=== PATIENT | female | born 1955 | race Caucasian/White ===

== ENCOUNTER 2016-07-13 22:42 | Inpatient (IN) | payer BC ==
[2016-07-13] MEDS ORDERED: Albuterol/Ipratropium 3.0-0.5 MG/3 ML Neb Soln NEB ONE (22:49)
[2016-07-13] MEDS ORDERED: methylPREDNISolone Sodium Succinate 125 MG/2 ML SDV IVPUSH ONE (23:09)
[2016-07-13] MEDS ORDERED: Sodium Chloride 0.9% 1,000 ML IV ONE (23:10)
[2016-07-13 23:23] LABS: CHLORIDE,CL 103 mmol/L (101-111); SODIUM,NA 136 mmol/L (135-145)
[2016-07-13] MEDS ORDERED: Potassium Chloride 10 MEQ Tab.ER PO ONE (23:41)
--- NOTE | 2016-07-13 23:57 | EDM.PDOC ---
ED HISTORY OF PRESENT ILLNESS - General Chief Complaint: Respiratory Problem Stated Complaint: COUGH, DIFFICULTY BREATHING Time Seen by Provider: 07/13/16 22:50 Source of Information: Reports: Patient History Limitations: Reports: Respiratory distress - History of Present Illness INITIAL COMMENTS - FREE TEXT/NARRATIVE: c/o severe cough and difficultly breathing. Cough x 2 months was told GERD, Cough worsening over past week SOB with minimal activity. Fever chills past few days. Trying OTC without improvement. Hx reactive airway but never on inhaler or nebulizer. Bronchitis 2 years ago. Lots of sinus drainage. Feels weak Severity: moderate Location, General: Reports: chest Worsens with: Reports: Movement Context, General: Reports: Activity Associated Symptoms (General): Reports: cough, fever/chills, loss of appetite, malaise - Related Data Allergies/ADRs: Allergies Allergy/AdvReac Type Severity Reaction Status Date / Time IVP dye Allergy Cannot Uncoded 07/13/16 22:53 Remember Home Meds: Home Meds Lisinopril [Lisinopril] 20 mg PO DAILY 07/13/16 [History] Amitriptyline [Elavil] 25 mg PO BEDTIME 07/14/16 [History] Past Medical History Respiratory History: Reports: Other (see below) Other Respiratory History: Reactive Airway Disease Social & Family History - Tobacco Use Smoking Status *Q: Never Smoker Second Hand Smoke Exposure: No - Caffeine Use Caffeine Use: Reports: Coffee - Recreational Drug Use Recreational Drug Use: No ED ROS GENERAL - Review of Systems Review Of Systems: See Below Constitutional: Reports: fever, chills, malaise, weakness, decreased appetite HEENT: Reports: Ear pain (feel full), Sinus problem, Throat pain (mild) Respiratory: Reports: shortness of breath, cough, sputum (rare) Cardiovascular: Reports: Dyspnea on exertion. Denies: Edema, Lightheadedness GI/Abdominal: Reports: No symptoms : Reports: no symptoms Musculoskeletal: Reports: no symptoms Skin: Reports: no symptoms Neurological: Reports: no symptoms ED EXAM, GENERAL - Physical Exam Exam: See Below Exam Limited By: No limitations General Appearance: alert, moderate distress (inital 2 word responses, ), thin Eye Exam: bilateral eye: EOMI Ears: normal external exam. No: normal TMs (dull) Nose: normal inspection Throat/Mouth: Other (mucus membranes tacky. vocal hoarseness) Respiratory/Chest: lungs clear, respiratory distress, decreased breath sounds, other (harxh coarse cough) Cardiovascular: normal peripheral pulses, regular rate, rhythm, no edema GI/Abdominal: normal bowel sounds, soft Extremities: normal inspection Neurological: alert, oriented Psychiatric: anxious Skin Exam: Warm, Diaphoretic, Pallor Course - Vital Signs Last Recorded V/S: Last Vital Signs Temp 98.2 F 07/14/16 01:20 Pulse 98 07/14/16 01:20 Resp 20 07/14/16 01:20 BP 151/98 H 07/14/16 01:20 Pulse Ox 95 07/14/16 01:20 - Orders/Labs/Meds Orders: Active Orders 24 hr Category Date Time Status Patient Status [ADT] Routine ADT 07/14/16 01:22 Active EKG 12 Lead [EKG Documentation Completion] [RC] URGENT Care 07/13/16 22:50 Active Flutter Valve Therapy [RT Chest Physiotherapy] [RC] Care 07/14/16 01:32 Active ASDIRECTED IS (RT) [RT Incentive Spirometry] [RC] ASDIRECTED Care 07/14/16 01:32 Active Oxygen Therapy [RC] PRN Care 07/14/16 01:22 Active Pulse Oximetry [RC] PRN Care 07/14/16 01:23 Active RT Aerosol Therapy [RC] ASDIRECTED Care 07/13/16 22:49 Active RT Aerosol Therapy [RC] ASDIRECTED Care 07/14/16 00:40 Active RT Aerosol Therapy [RC] ASDIRECTED Care 07/14/16 01:26 Active Up ad Shweta [RC] ASDIRECTED Care 07/14/16 01:22 Active VTE/DVT Education [RC] PER UNIT ROUTINE Care 07/14/16 01:22 Active Vital Signs [RC] Q4H Care 07/14/16 01:22 Active 2 Gram Sodium Diet [DIET] Diet 07/14/16 Breakfast Active BASIC METABOLIC PANEL,BMP [CHEM] Routine Lab 07/14/16 06:00 Ordered CULTURE BLOOD [BC] Stat Lab 07/13/16 23:59 Results CULTURE SPUTUM + SMEAR [RM] Stat Lab 07/14/16 00:55 Received Acetaminophen [Tylenol] Med 07/14/16 01:22 Ordered 650 mg PO Q4H PRN Albuterol [Proventil Neb Soln] Med 07/14/16 01:22 Ordered 2.5 mg NEB Q2H PRN Albuterol/Ipratropium [DuoNeb 3.0-0.5 MG/3 ML] Med 07/14/16 01:30 Ordered 3 ml NEB Q4H Azithromycin [Zithromax] 500 mg Med 07/14/16 12:00 Ordered Sodium Chloride 0.9% [Normal Saline] 250 ml IV Q24H Codeine/Promethazine [Phenergan with Codeine] Med 07/14/16 01:31 Ordered 5 ml PO Q6HR PRN Enoxaparin [Lovenox] Med 07/14/16 09:00 Ordered 40 mg SUBCUT DAILY Levofloxacin/Dextrose 5%-Water [Levaquin in D5W 500 MG/ Med 07/14/16 00:41 Active 100 ML] 500 mg Premix Bag 1 bag IV ONETIME Lisinopril [Prinivil] Med 07/14/16 02:00 Ordered 10 mg PO DAILY Sodium Chloride 0.9% [Normal Saline] 1,000 ml Med 07/13/16 23:10 Active IV ONETIME Sodium Chloride 0.9% [Saline Flush] Med 07/14/16 01:22 Ordered 10 ml FLUSH ASDIRECTED PRN guaiFENesin [Robitussin] Med 07/14/16 01:45 Ordered 100 mg PO Q6H methylPREDNISolone Sod Succ [Solu-MEDROL] Med 07/14/16 07:00 Ordered 40 mg IVPUSH Q8H Saline Lock Insert [OM.PC] Routine Oth 07/14/16 01:22 Ordered Resuscitation Status Routine Resus Stat 07/14/16 01:22 Ordered Medication Orders Acetaminophen (Tylenol) 650 mg PO Q4H PRN PRN Reason: Pain (Mild 1-3)/fever Albuterol (Proventil Neb Soln) 2.5 mg NEB Q2H PRN PRN Reason: shortness of breath/wheezing Albuterol/Ipratropium (Duoneb 3.0-0.5 Mg/3 Ml) 3 ml NEB Q4H JOSE Enoxaparin Sodium (Lovenox) 40 mg SUBCUT DAILY JOSE Guaifenesin (Robitussin) 100 mg PO Q6H JOSE Sodium Chloride (Normal Saline) 1,000 mls @ 200 mls/hr IV ONETIME ONE Stop: 07/14/16 04:09 Last Admin: 07/13/16 23:23 Dose: 200 mls/hr Levofloxacin/Dextrose 500 mg/ (Premix) 100 mls @ 100 mls/hr IV ONETIME ONE Stop: 07/14/16 01:40 Last Admin: 07/14/16 00:51 Dose: 100 mls/hr Azithromycin 500 mg/ Sodium (Chloride) 250 mls @ 250 mls/hr IV Q24H JOSE Lisinopril (Prinivil) 10 mg PO DAILY JOSE Methylprednisolone Sodium Succinate (Solu-Medrol) 40 mg IVPUSH Q8H JOSE Promethazine HCl/Codeine (Phenergan With Codeine) 5 ml PO Q6HR PRN PRN Reason: Cough Sodium Chloride (Saline Flush) 10 ml FLUSH ASDIRECTED PRN PRN Reason: Keep Vein Open Labs: Laboratory Tests 07/13/16 07/13/16 07/13/16 Range/Units 22:57 22:57 22:57 WBC 9.0 (5.0-10.0) 10^3/uL RBC 4.58 (4.2-5.4) 10^6/uL Hgb 13.6 (12.0-16.0) g/dL Hct 40.4 (37.0-47.0) % MCV 88.2 (80-100) fL MCH 29.7 (27.0-34.0) pg MCHC 33.7 (33.0-35.0) g/dL Plt Count 200 (150-450) 10^3/uL Neut % (Auto) 75.0 (42.2-75.2) % Lymph % (Auto) 14.3 L (20.5-50.1) % [place] % (Auto) 8.4 H (2-8) % Eos % (Auto) 2.2 (1.0-3.0) % Baso % (Auto) 0.1 (0.0-1.0) % D-Dimer, Quantitative (0-400) ng/mL Sodium 136 (135-145) mmol/L Potassium 3.1 L (3.6-5.0) mmol/L Chloride 103 (101-111) mmol/L Carbon Dioxide 25.0 (21.0-31.0) mmol/L Anion Gap 11.1 BUN 12 (7-18) mg/dL Creatinine 0.7 (0.6-1.3) mg/dL Est Cr Clr Drug Dosing TNP Estimated GFR (MDRD) > 60 BUN/Creatinine Ratio 17.14 Glucose 118 H (74-105) mg/dL Lactic Acid 1.5 (0.5-2.2) mmol/L Calcium 8.7 (8.4-10.2) mg/dl Total Bilirubin 0.4 (0.2-1.0) mg/dL AST 29 (10-42) IU/L ALT 13 (10-60) IU/L Alkaline Phosphatase 63 (42-121) IU/L Troponin I (0.00-0.02) ng/ml B-Natriuretic Peptide (0-100) pg/ml Total Protein 7.4 (6.7-8.2) g/dl Albumin 4.2 (3.2-5.5) g/dl Globulin 3.2 Albumin/Globulin Ratio 1.31 07/13/16 07/13/16 Range/Units 22:57 22:57 WBC (5.0-10.0) 10^3/uL RBC (4.2-5.4) 10^6/uL Hgb (12.0-16.0) g/dL Hct (37.0-47.0) % MCV (80-100) fL MCH (27.0-34.0) pg MCHC (33.0-35.0) g/dL Plt Count (150-450) 10^3/uL Neut % (Auto) (42.2-75.2) % Lymph % (Auto) (20.5-50.1) % [place] % (Auto) (2-8) % Eos % (Auto) (1.0-3.0) % Baso % (Auto) (0.0-1.0) % D-Dimer, Quantitative 281 (0-400) ng/mL Sodium (135-145) mmol/L Potassium (3.6-5.0) mmol/L Chloride (101-111) mmol/L Carbon Dioxide (21.0-31.0) mmol/L Anion Gap BUN (7-18) mg/dL Creatinine (0.6-1.3) mg/dL Est Cr Clr Drug Dosing Estimated GFR (MDRD) BUN/Creatinine Ratio Glucose (74-105) mg/dL Lactic Acid (0.5-2.2) mmol/L Calcium (8.4-10.2) mg/dl Total Bilirubin (0.2-1.0) mg/dL AST (10-42) IU/L ALT (10-60) IU/L Alkaline Phosphatase (42-121) IU/L Troponin I < 0.02 (0.00-0.02) ng/ml B-Natriuretic Peptide 32 (0-100) pg/ml Total Protein (6.7-8.2) g/dl Albumin (3.2-5.5) g/dl Globulin Albumin/Globulin Ratio Meds: Medications Generic Name Dose Route Start Last Admin Trade Name Freq PRN Reason Stop Dose Admin Acetaminophen 650 mg 07/14/16 01:22 Tylenol PO Q4H PRN Pain (Mild 1-3)/fever Albuterol 2.5 mg 07/14/16 01:22 Proventil Neb Soln NEB Q2H PRN shortness of breath/wheezing Albuterol/Ipratropium 3 ml 07/14/16 01:30 Duoneb 3.0-0.5 Mg/3 Ml NEB Q4H JOSE Enoxaparin Sodium 40 mg 07/14/16 09:00 Lovenox SUBCUT DAILY PENDING SALE TO [facility] Guaifenesin 100 mg 07/14/16 01:45 Robitussin PO Q6H JOSE Sodium Chloride 1,000 mls @ 200 mls/hr 07/13/16 23:10 07/13/16 23:23 Normal Saline IV 07/14/16 04:09 200 mls/hr ONETIME ONE Administration Levofloxacin/Dextrose 500 mg/ 100 mls @ 100 mls/hr 07/14/16 00:41 07/14/16 00 :51 Premix IV 07/14/16 01:40 100 mls/hr ONETIME ONE Administration Azithromycin 500 mg/ Sodium 250 mls @ 250 mls/hr 07/14/16 12:00 Chloride IV Q24H JOSE Lisinopril 10 mg 07/14/16 02:00 Prinivil PO DAILY JOSE Methylprednisolone Sodium Succinate 40 mg 07/14/16 07:00 Solu-Medrol IVPUSH Q8H JOSE Promethazine HCl/Codeine 5 ml 07/14/16 01:31 Phenergan With Codeine PO Q6HR PRN Cough Sodium Chloride 10 ml 07/14/16 01:22 Saline Flush FLUSH ASDIRECTED PRN Keep Vein Open Discontinued Medications Generic Name Dose Route Start Last Admin Trade Name Evelio PRN Reason Stop Dose Admin Albuterol 2.5 mg 07/14/16 00:40 07/14/16 00:52 Proventil Neb Soln NEB 07/14/16 00:41 2.5 mg ONETIME ONE Administration Albuterol/Ipratropium 3 ml 07/13/16 22:49 07/13/16 22:54 Duoneb 3.0-0.5 Mg/3 Ml NEB 07/13/16 22:50 3 ml ONETIME ONE Administration Methylprednisolone Sodium Succinate 125 mg 07/13/16 23:09 07/13/16 23:23 Solu-Medrol IVPUSH 07/13/16 23:10 125 mg ONETIME ONE Administration Potassium Chloride 40 meq 07/13/16 23:41 07/13/16 23:47 Klor-Con 10 PO 07/13/16 23:42 40 meq ONETIME ONE Administration - Re-Assessments/Exams Free Text/Narrative Re-Assessment/Exam: 07/14/16 01:02 Improvement in severity of cough and frequency initially following DUO neb. Talkking full sentences. HR decreased. Resting. Coughing and dyspnea with minimal movement in bed after [address] Radford. Here to ED to eval patient. Departure - Departure Time of Disposition: 01:20 Disposition: Admitted As Inpatient 65 Condition: fair Clinical Impression: Hypokalemia, Bronchitis Dyspnea Qualifiers: Dyspnea type: shortness of breath Qualified Code(s): R06.02 - Shortness of breath Gastroesophageal reflux disease Qualifiers: Esophagitis presence: esophagitis presence not specified Qualified Code(s): K21.9 - Gastro-esophageal reflux disease without esophagitis Hypertension Qualifiers: Hypertension type: essential hypertension Qualified Code(s): I10 - Essential ( primary) hypertension Forms: ED Department Discharge - My Orders Last 24 Hours: My Active Orders 07/13/16 22:49 RT Aerosol Therapy [RC] ASDIRECTED 07/13/16 22:50 EKG 12 Lead [EKG Documentation Completion] [RC] URGENT 07/13/16 23:10 Sodium Chloride 0.9% [Normal Saline] 1,000 ml IV ONETIME 07/13/16 23:59 CULTURE BLOOD [BC] Stat 07/14/16 00:40 RT Aerosol Therapy [RC] ASDIRECTED 07/14/16 00:41 Levofloxacin/Dextrose 5%-Water [Levaquin in D5W 500 MG/100 ML] 500 mg Premix Bag 1 bag IV ONETIME 07/14/16 00:55 CULTURE SPUTUM + SMEAR [RM] Stat - Assessment/Plan Last 24 Hours: My Active Orders 07/13/16 22:49 RT Aerosol Therapy [RC] ASDIRECTED 07/13/16 22:50 EKG 12 Lead [EKG Documentation Completion] [RC] URGENT 07/13/16 23:10 Sodium Chloride 0.9% [Normal Saline] 1,000 ml IV ONETIME 07/13/16 23:59 CULTURE BLOOD [BC] Stat 07/14/16 00:40 RT Aerosol Therapy [RC] ASDIRECTED 07/14/16 00:41 Levofloxacin/Dextrose 5%-Water [Levaquin in D5W 500 MG/100 ML] 500 mg Premix Bag 1 bag IV ONETIME 07/14/16 00:55 CULTURE SPUTUM + SMEAR [RM] Stat
[2016-07-14] MEDS ORDERED: Albuterol 0.083% 2.5 MG/3 ML Neb Soln NEB ONE (00:40)
[2016-07-14] MEDS ORDERED: Levofloxacin/Dextrose 5%-Water 500 MG in Premix Bag 1 BAG IV ONE (00:41)
[2016-07-14] MEDS ORDERED: Albuterol 0.083% 2.5 MG/3 ML Neb Soln NEB PRN (01:22)
[2016-07-14] MEDS ORDERED: Albuterol/Ipratropium 3.0-0.5 MG/3 ML Neb Soln NEB SCH (01:30)
--- NOTE | 2016-07-14 01:40 | PCM.HP ---
H&P History of Present Illness - General Date of Service: 07/14/16 Admit Problem/Dx: Admission Diagnosis/Problem Admission Diagnosis/Problem Reactive airways dysfunction syndrome Source of Information: Patient, Family, Provider History Limitations: Reports: No limitations - History of Present Illness Initial Comments - Free Text/Narative: Surekha is a pleasant 60 y/o with PMH of reactive airway dz, HTN, GERD, who presents to EOD with c/c dyspnea, cough, fever. PT report she has had a cough for past several months. Initally attributed to GERD pt has been on PPI with really no improvement. She has also held her VIKASH - again w/o improvement. IN past one month the cough character changed to a more bronchial cough, She also developed sinus and chest congestions. She has abeen running low grade temps and having intermittent chills. Cough is productive of thick yellow sputum. She has coughing spells that make her very SOB - which is what triggered EOD visit tonight. NO improvement with Advair, and OTC meds. She has not been on any antibx. upon arrival to EOD pt was tachycardic with pulse of 129 and tachypnic with RR of 24 to 30. She was unable to speak in full sentences due to dyspnea. She was hypertensive with BP of 179/128. PT improved with nebs and solumedrol but is still tachy with pulse of 98, RR of 20 - at rest and pressures improved but still elevated at 151/98 . She also remains dyspnic with longer conversation. - Related Data Allergies/Adverse Reactions: Allergies Allergy/AdvReac Type Severity Reaction Status Date / Time IVP dye Allergy Cannot Uncoded 07/13/16 22:53 Remember Home Medications: Home Meds Lisinopril [Lisinopril] 20 mg PO DAILY 07/13/16 [History] Amitriptyline [Elavil] 25 mg PO BEDTIME 07/14/16 [History] Past Medical History Respiratory History: Reports: Other (see below) Other Respiratory History: Reactive Airway Disease Social & Family History - Family History Cardiac: Reports: Hypertension (both parents, sister), [place] (father) GI: Reports: Celiac disease (sister) Neurological: Reports: Alzheimers disease (mother) - Tobacco Use Smoking Status *Q: Never Smoker Second Hand Smoke Exposure: No - Caffeine Use Caffeine Use: Reports: Coffee - Recreational Drug Use Recreational Drug Use: No H&P Review of Systems - Review of Systems: Review Of Systems: See Below General: Reports: fever, chills, malaise, fatigue HEENT: Reports: headaches, sinus congestion, sore throat Pulmonary: Reports: shortness of breath, wheezing, cough, sputum Cardiovascular: Reports: no symptoms Gastrointestinal: Reports: No symptoms Genitourinary: Reports: no symptoms Musculoskeletal: Reports: other (general arthtitis - at baseline ) Skin: Reports: no symptoms Psychiatric: Reports: no symptoms Neurological: Reports: no symptoms Immunologic: Reports: environmental allergy Exam - Exam Exam: See Below - Vital Signs Vital Signs: Last Vital Signs Temp 36.8 C 07/14/16 01:20 Pulse 98 07/14/16 01:20 Resp 20 07/14/16 01:20 BP 151/98 H 07/14/16 01:20 Pulse Ox 95 07/14/16 01:20 Weight: 58.967 kg - Exam General: alert, oriented, mild distress HEENT: Conjunctiva clear, Mucosa moist & pink Lungs: Clear to auscultation, Other (accessory muscle use with conversation. deep bronchial coughing spells ) Cardiovascular: regular rate, tachycardia Abdomen: normal bowel sounds, soft Extremities: normal inspection Peripheral Pulses: 2+: radial (L), radial (R) Skin: warm Neuro Extensive - Mental Status: alert, oriented x3, normal mood/affect, normal cognition - Patient Data Result Diagrams: 07/13/16 22:57 07/13/16 22:57 *Q Meaningful Use (ADM) - VTE *Q VTE Criteria *Q: - Stroke *Q Stroke Criteria *Q: - AMI *Q AMI Criteria *Q: - Problem List (1) Reactive airway disease SNOMED Code(s): 945289851898 ICD Code: J45.909 - UNSPECIFIED ASTHMA, UNCOMPLICATED Status: Acute Priority: Medium Current Visit: Yes Qualifiers: Asthma severity: unspecified severity (2) Bronchitis SNOMED Code(s): 86576938 ICD Code: J40 - BRONCHITIS, NOT SPECIFIED ACUTE OR CHRONIC Status: Acute Priority: High Current Visit: Yes (3) Dyspnea SNOMED Code(s): 894322484 ICD Code: R06.00 - DYSPNEA, UNSPECIFIED Status: Acute Priority: High Current Visit: Yes Qualifiers: Dyspnea type: shortness of breath Qualified Code(s): R06.02 - Shortness of breath (4) Hypertension SNOMED Code(s): 72993165 ICD Code: I10 - ESSENTIAL (PRIMARY) HYPERTENSION Status: Acute Priority: High Current Visit: Yes Qualifiers: Hypertension type: essential hypertension Qualified Code(s): I10 - Essential (primary) hypertension (5) Hypokalemia SNOMED Code(s): 63312359 ICD Code: E87.6 - HYPOKALEMIA Status: Acute Priority: Medium Current Visit: Yes Problem List Initiated/Reviewed/Updated: Yes Orders Last 24hrs: Active Orders 24 hr Category Date Time Status Patient Status [ADT] Routine ADT 07/14/16 01:22 Ordered Flutter Valve Therapy [RT Chest Physiotherapy] [RC] Care 07/14/16 01:32 Ordered ASDIRECTED IS (RT) [RT Incentive Spirometry] [RC] ASDIRECTED Care 07/14/16 01:32 Ordered Oxygen Therapy [RC] PRN Care 07/14/16 01:22 Ordered Pulse Oximetry [RC] PRN Care 07/14/16 01:23 Ordered RT Aerosol Therapy [RC] ASDIRECTED Care 07/14/16 01:26 Ordered Up ad Shweta [RC] ASDIRECTED Care 07/14/16 01:22 Ordered VTE/DVT Education [RC] PER UNIT ROUTINE Care 07/14/16 01:22 Ordered Vital Signs [RC] Q4H Care 07/14/16 01:22 Ordered 2 Gram Sodium Diet [DIET] Diet 07/14/16 Breakfast Ordered BASIC METABOLIC PANEL,BMP [CHEM] Routine Lab 07/14/16 06:00 Ordered Acetaminophen [Tylenol] Med 07/14/16 01:22 Ordered 650 mg PO Q4H PRN Albuterol [Proventil Neb Soln] Med 07/14/16 01:22 Ordered 2.5 mg NEB Q2H PRN Albuterol/Ipratropium [DuoNeb 3.0-0.5 MG/3 ML] Med 07/14/16 01:30 Ordered 3 ml NEB Q4H Azithromycin [Zithromax] 500 mg Med 07/14/16 12:00 Ordered Sodium Chloride 0.9% [Normal Saline] 250 ml IV Q24H Codeine/Promethazine [Phenergan with Codeine] Med 07/14/16 01:31 Ordered 5 ml PO Q6HR PRN Enoxaparin [Lovenox] Med 07/14/16 09:00 Ordered 40 mg SUBCUT DAILY Lisinopril [Prinivil] Med 07/14/16 02:00 Ordered 10 mg PO DAILY Sodium Chloride 0.9% [Saline Flush] Med 07/14/16 01:22 Ordered 10 ml FLUSH ASDIRECTED PRN guaiFENesin [Robitussin] Med 07/14/16 01:45 Ordered 100 mg PO Q6H methylPREDNISolone Sod Succ [Solu-MEDROL] Med 07/14/16 07:00 Ordered 40 mg IVPUSH Q8H Saline Lock Insert [OM.PC] Routine Oth 07/14/16 01:22 Ordered Resuscitation Status Routine Resus Stat 07/14/16 01:22 Ordered Medication Orders Acetaminophen (Tylenol) 650 mg PO Q4H PRN PRN Reason: Pain (Mild 1-3)/fever Albuterol (Proventil Neb Soln) 2.5 mg NEB Q2H PRN PRN Reason: shortness of breath/wheezing Albuterol/Ipratropium (Duoneb 3.0-0.5 Mg/3 Ml) 3 ml NEB Q4H JOSE Enoxaparin Sodium (Lovenox) 40 mg SUBCUT DAILY JOSE Guaifenesin (Robitussin) 100 mg PO Q6H JOSE Sodium Chloride (Normal Saline) 1,000 mls @ 200 mls/hr IV ONETIME ONE Stop: 07/14/16 04:09 Last Admin: 07/13/16 23:23 Dose: 200 mls/hr Levofloxacin/Dextrose 500 mg/ (Premix) 100 mls @ 100 mls/hr IV ONETIME ONE Stop: 07/14/16 01:40 Last Admin: 07/14/16 00:51 Dose: 100 mls/hr Azithromycin 500 mg/ Sodium (Chloride) 250 mls @ 250 mls/hr IV Q24H JOSE Lisinopril (Prinivil) 10 mg PO DAILY JOSE Methylprednisolone Sodium Succinate (Solu-Medrol) 40 mg IVPUSH Q8H JOSE Promethazine HCl/Codeine (Phenergan With Codeine) 5 ml PO Q6HR PRN PRN Reason: Cough Sodium Chloride (Saline Flush) 10 ml FLUSH ASDIRECTED PRN PRN Reason: Keep Vein Open Assessment/Plan Comment:: Reactive airway dz pt present with Dyspnea with tachycardia/tachyneas and associated bronchial cough -CXR neg for infiltrate, no evidence or h/o CHF, No acute risks for PE, no cardiac symptoms -pt responding to EOD treatment with nebs/steroids- will cont both and monitor Bronchtiis -no infiltrate on CXR -symptoms for at least one month - also associated sinus congestions - meets criteria for antibx -h/o ruptured tendon and also now on steroids- will start azithromycin - has been given levaquin in EOD -f/u blood and sputum cultures -schedule robitussin- add PRN phenergan with codeine and tesselon pearles -start IS and flutter HTN -pressures elevated -has not had her lisinopril- will give dose yet tonight and follow Hypokalemia -given 40 mEq in EOD_ recheck in am GERD -cont PPI -hold elevil while on azithro lovenox DVT PPX full code observation- re-eval pt in AM>
[2016-07-14] MEDS: guaiFENesin 100 MG/5 ML Soln 5 ML UD Cup PO SCH ×6 (02:09→23:58)
[2016-07-14] MEDS: Lisinopril 10 MG Tab PO SCH ×2 (02:10→09:44)
[2016-07-14] MEDS: Acetaminophen 325 MG Tab PO PRN ×3 (02:13→14:45)
[2016-07-14] MEDS: Codeine/Promethazine 10-6.25 MG/5 ML Syrup 5 ML UD Cup PO PRN ×3 (02:14→17:10)
[2016-07-14] MEDS: Benzonatate 100 MG Cap PO PRN ×3 (02:14→23:30)
[2016-07-14 06:43] LABS: CHLORIDE,CL 107 mmol/L (101-111); SODIUM,NA 140 mmol/L (135-145)
[2016-07-14] MEDS: Albuterol/Ipratropium 3.0-0.5 MG/3 ML Neb Soln NEB SCH ×5 (07:49→23:17)
[2016-07-14] MEDS: methylPREDNISolone Sodium Succinate 40 MG/1 ML SDV IVPUSH SCH ×3 (08:01→23:16)
[2016-07-14] MEDS ORDERED: Potassium Chloride 10 MEQ Tab.ER PO ONE (09:00)
[2016-07-14] MEDS: Enoxaparin 40 MG/0.4 ML Syringe SUBCUT SCH (09:50)
[2016-07-14] MEDS: Azithromycin 500 MG in Sodium Chloride 0.9% 250 ML IV SCH (12:07)
--- NOTE | 2016-07-14 12:08 | PCM.PN ---
- General Info Date of Service: 07/14/16 Subjective Update: pt cont to cough although the phenergan/codieine did help- caused some mild nausea resolved with crackers. cont thick sputum - no blood in sputum. very dyspnic just up to bathroom. cough related BENITEZ, sore throat. still note some dyspnea with longer conversation and certainly with coughing spells. Functional Status: Reports: pain controlled, tolerating diet - Review of Systems General: Reports: fatigue Pulmonary: Reports: shortness of breath, cough, sputum Cardiovascular: Reports: dyspnea on exertion Gastrointestinal: Reports: No symptoms Genitourinary: Reports: no symptoms Musculoskeletal: Reports: no symptoms Neurological: Reports: no symptoms - Patient Data Vitals - most recent: Last Vital Signs Temp 36.8 C 07/14/16 07:00 Pulse 102 H 07/14/16 10:21 Resp 20 07/14/16 10:21 BP 141/82 H 07/14/16 10:21 Pulse Ox 98 07/14/16 10:21 Weight - most recent: 58.967 kg I&O - last 24 hours: Intake & Output 07/13/16 07/14/16 07/14/16 22:59 06:59 14:59 Intake Total 500 440 Output Total 300 700 Balance 200 -260 Lab Results last 24 hrs: Laboratory Results - last 24 hr 07/14/16 Range/Units 05:55 Sodium 140 (135-145) mmol/L Potassium 3.4 L (3.6-5.0) mmol/L Chloride 107 (101-111) mmol/L Carbon Dioxide 25.0 (21.0-31.0) mmol/L Anion Gap 11.4 BUN 12 (7-18) mg/dL Creatinine 0.8 (0.6-1.3) mg/dL Est Cr Clr Drug Dosing 68.74 mL/min Estimated GFR (MDRD) > 60 Glucose 158 H (74-105) mg/dL Calcium 8.8 (8.4-10.2) mg/dl Med Orders - Current: Current Medications Acetaminophen (Tylenol) 650 mg PO Q4H PRN PRN Reason: Pain (Mild 1-3)/fever Last Admin: 07/14/16 09:42 Dose: 650 mg Albuterol (Proventil Neb Soln) 2.5 mg NEB Q2H PRN PRN Reason: shortness of breath/wheezing Albuterol/Ipratropium (Duoneb 3.0-0.5 Mg/3 Ml) 3 ml NEB Q4HRRT [facility] Last Admin: 07/14/16 11:35 Dose: 3 ml Benzonatate (Tessalon Perles) 100 mg PO TID PRN PRN Reason: Cough Last Admin: 07/14/16 02:14 Dose: 100 mg Enoxaparin Sodium (Lovenox) 40 mg SUBCUT DAILY [facility] Last Admin: 07/14/16 09:50 Dose: 40 mg Guaifenesin (Robitussin) 100 mg PO Q6H [facility] Last Admin: 07/14/16 08:01 Dose: 100 mg Azithromycin 500 mg/ Sodium (Chloride) 250 mls @ 250 mls/hr IV Q24H [facility] Lisinopril (Prinivil) 10 mg PO DAILY [facility] Last Admin: 07/14/16 09:44 Dose: 10 mg Methylprednisolone Sodium Succinate (Solu-Medrol) 40 mg IVPUSH Q8H [facility] Last Admin: 07/14/16 08:01 Dose: 40 mg Promethazine HCl/Codeine (Phenergan With Codeine) 5 ml PO Q6H PRN PRN Reason: Cough Last Admin: 07/14/16 09:42 Dose: 5 ml Sodium Chloride (Saline Flush) 10 ml FLUSH ASDIRECTED PRN PRN Reason: Keep Vein Open Discontinued Medications Albuterol (Proventil Neb Soln) 2.5 mg NEB ONETIME ONE Stop: 07/14/16 00:41 Last Admin: 07/14/16 00:52 Dose: 2.5 mg Albuterol/Ipratropium (Duoneb 3.0-0.5 Mg/3 Ml) 3 ml NEB ONETIME ONE Stop: 07/13/16 22:50 Last Admin: 07/13/16 22:54 Dose: 3 ml Albuterol/Ipratropium (Duoneb 3.0-0.5 Mg/3 Ml) 3 ml NEB Q4H [facility] Last Admin: 07/14/16 02:44 Dose: 3 ml Sodium Chloride (Normal Saline) 1,000 mls @ 200 mls/hr IV ONETIME ONE Stop: 07/14/16 04:09 Last Admin: 07/13/16 23:23 Dose: 200 mls/hr Levofloxacin/Dextrose 500 mg/ (Premix) 100 mls @ 100 mls/hr IV ONETIME ONE Stop: 07/14/16 01:40 Last Admin: 07/14/16 00:51 Dose: 100 mls/hr Methylprednisolone Sodium Succinate (Solu-Medrol) 125 mg IVPUSH ONETIME ONE Stop: 07/13/16 23:10 Last Admin: 07/13/16 23:23 Dose: 125 mg Potassium Chloride (Klor-Con 10) 40 meq PO ONETIME ONE Stop: 07/13/16 23:42 Last Admin: 07/13/16 23:47 Dose: 40 meq Potassium Chloride (Klor-Con 10) 40 meq PO ONETIME ONE Stop: 07/14/16 09:01 Last Admin: 07/14/16 09:44 Dose: 40 meq - Exam General: alert, oriented, cooperative, mild distress (with conversation ) Lungs: Decreased breath sounds, Crackles, Other (accessory muscle use with longer conversation ) Cardiovascular: regular rhythm, tachycardia Abdomen: bowel sounds present, soft, no tenderness Extremities: no edema Peripheral Pulses: 2+: radial (L), radial (R) Skin: warm Psy/Mental Status: alert - Problem List & Annotations (1) Reactive airway disease SNOMED Code(s): 564040183558 Code(s): J45.909 - UNSPECIFIED ASTHMA, UNCOMPLICATED Status: Acute Priority: Medium Current Visit: Yes Qualifiers: Asthma severity: unspecified severity (2) Bronchitis SNOMED Code(s): 39573541 Code(s): J40 - BRONCHITIS, NOT SPECIFIED ACUTE OR CHRONIC Status: Acute Priority: High Current Visit: Yes (3) Dyspnea SNOMED Code(s): 418157785 Code(s): R06.00 - DYSPNEA, UNSPECIFIED Status: Acute Priority: High Current Visit: Yes Qualifiers: Dyspnea type: shortness of breath Qualified Code(s): R06.02 - Shortness of breath (4) Hypertension SNOMED Code(s): 17939646 Code(s): I10 - ESSENTIAL (PRIMARY) HYPERTENSION Status: Acute Priority: High Current Visit: Yes Qualifiers: Hypertension type: essential hypertension Qualified Code(s): I10 - Essential (primary) hypertension (5) Hypokalemia SNOMED Code(s): 36877286 Code(s): E87.6 - HYPOKALEMIA Status: Acute Priority: Medium Current Visit: Yes - Problem List Review Problem List Initiated/Reviewed/Updated: Yes - My Orders Last 24 Hours: My Active Orders 07/14/16 01:22 Oxygen Therapy [RC] PRN Up ad Shweta [RC] ASDIRECTED VTE/DVT Education [RC] PER UNIT ROUTINE Vital Signs [RC] Q4H Acetaminophen [Tylenol] 650 mg PO Q4H PRN Albuterol [Proventil Neb Soln] 2.5 mg NEB Q2H PRN Sodium Chloride 0.9% [Saline Flush] 10 ml FLUSH ASDIRECTED PRN Saline Lock Insert [OM.PC] Routine Resuscitation Status Routine 07/14/16 01:23 Pulse Oximetry [RC] PRN 07/14/16 01:26 RT Aerosol Therapy [RC] ASDIRECTED 07/14/16 01:31 Codeine/Promethazine [Phenergan with Codeine] 5 ml PO Q6H PRN 07/14/16 01:32 Flutter Valve Therapy [RT Chest Physiotherapy] [RC] ASDIRECTED IS (RT) [RT Incentive Spirometry] [RC] ASDIRECTED 07/14/16 01:45 guaiFENesin [Robitussin] 100 mg PO Q6H 07/14/16 01:56 Benzonatate [Tessalon Perles] 100 mg PO TID PRN 07/14/16 02:00 Lisinopril [Prinivil] 10 mg PO DAILY 07/14/16 07:00 Albuterol/Ipratropium [DuoNeb 3.0-0.5 MG/3 ML] 3 ml NEB Q4HRRT methylPREDNISolone Sod Succ [Solu-MEDROL] 40 mg IVPUSH Q8H 07/14/16 09:00 Enoxaparin [Lovenox] 40 mg SUBCUT DAILY 07/14/16 10:53 Admission Status [Patient Status] [ADT] Routine 07/14/16 12:00 Azithromycin [Zithromax] 500 mg Sodium Chloride 0.9% [Normal Saline] 250 ml IV Q24H 07/14/16 Breakfast 2 Gram Sodium Diet [DIET] 07/15/16 06:00 BASIC METABOLIC PANEL,BMP [CHEM] Routine CBC WITH AUTO DIFF [HEME] Routine - Plan Plan:: Reactive airway dz pt present with Dyspnea with tachycardia/tachyneas and associated bronchial cough -CXR neg for infiltrate, no evidence or h/o CHF, No acute risks for PE, no cardiac symptoms -pt not significantly improved from last night- will cont nebs/steroids- Bronchtiis -no infiltrate on CXR -symptoms for at least one month - also associated sinus congestions - meets criteria for antibx -h/o ruptured tendon and also now on steroids-will avoid levaquin - to start IV azithromycin today -f/u blood and sputum cultures -cont schedule robitussin- PRN phenergan with codeine and tesselon pearles -cont IS and flutter HTN -pressures still elevated -will cont lisinopril - if not improving- may need to increase dose - Hypokalemia -improved -repeat dose 40 mEq in EOD _ recheck in am GERD -cont PPI -hold elevil while on azithro pt not significantly improved - anticipate ongoing requirement for treatment- will change to acute care lovenox DVT PPX full code
[2016-07-14] MEDS: cefTRIAXone 1 GM in Sodium Chloride 0.9% 50 ML IV SCH (17:08)
[2016-07-14] MEDS: Sodium Chloride 0.9% 10 ML Syringe FLUSH PRN (23:17)
[2016-07-14] MEDS ORDERED: LORazepam 0.5 MG Tab PO PRN (23:26)
[2016-07-15] MEDS: Albuterol/Ipratropium 3.0-0.5 MG/3 ML Neb Soln NEB SCH ×6 (03:12→22:26)
[2016-07-15] MEDS: Codeine/Promethazine 10-6.25 MG/5 ML Syrup 5 ML UD Cup PO PRN ×2 (03:17→18:07)
[2016-07-15] MEDS: Benzonatate 100 MG Cap PO PRN ×2 (03:30→22:33)
[2016-07-15] MEDS: guaiFENesin 100 MG/5 ML Soln 5 ML UD Cup PO SCH ×3 (06:34→18:08)
[2016-07-15 07:02] LABS: CHLORIDE,CL 107 mmol/L (101-111); SODIUM,NA 139 mmol/L (135-145)
[2016-07-15] MEDS: methylPREDNISolone Sodium Succinate 40 MG/1 ML SDV IVPUSH SCH (07:38)
--- NOTE | 2016-07-15 08:45 | EKG ---
07/13/2016- MARCUS KEARNS - TIME OF EK hours. EKG shows sinus rhythm with tachycardia. 115 beats per minute. There does appear to be ST depression in leads V4 and V5, but there is a wandering baseline. [facility] /[id number]
[2016-07-15] MEDS: Lisinopril 10 MG Tab PO SCH (09:13)
[2016-07-15] MEDS: predniSONE 20 MG Tab PO SCH (09:13)
[2016-07-15] MEDS: Enoxaparin 40 MG/0.4 ML Syringe SUBCUT SCH (09:14)
[2016-07-15] MEDS: Sodium Chloride 0.9% 10 ML Syringe FLUSH PRN ×2 (12:12→16:41)
[2016-07-15] MEDS: Azithromycin 500 MG in Sodium Chloride 0.9% 250 ML IV SCH (12:12)
--- NOTE | 2016-07-15 14:05 | PCM.PN ---
- General Info Date of Service: 07/15/16 Subjective Update: pt notes coughing is ever so slightly better - seems less sputum. pt with low grade temp yesterday. She had a restless sleep last night despite ativan- due to cough. pt still played out and taachycardic with minimal activity. Functional Status: Reports: pain controlled, tolerating diet, ambulating ( limited to bathroom and back only ) - Review of Systems General: Reports: fatigue HEENT: Reports: no symptoms Pulmonary: Reports: shortness of breath, cough, sputum Cardiovascular: Reports: dyspnea on exertion Gastrointestinal: Reports: Nausea (with couhg med ) Genitourinary: Reports: no symptoms Musculoskeletal: Reports: no symptoms Skin: Reports: no symptoms Neurological: Reports: no symptoms Psychiatric: Reports: no symptoms - Patient Data Vitals - most recent: Last Vital Signs Temp 36.3 C 07/15/16 10:51 Pulse 106 H 07/15/16 12:09 Resp 20 07/15/16 10:51 BP 120/82 07/15/16 10:51 Pulse Ox 97 07/15/16 10:51 Weight - most recent: 58.967 kg I&O - last 24 hours: Intake & Output 07/14/16 07/15/16 07/15/16 22:59 06:59 14:59 Intake Total 527 872 5318 Output Total 400 450 Balance 513 -210 1400 Lab Results last 24 hrs: Laboratory Results - last 24 hr 07/15/16 07/15/16 Range/Units 05:58 05:58 WBC 17.9 H (5.0-10.0) 10^3/uL RBC 4.01 L (4.2-5.4) 10^6/uL Hgb 11.8 L (12.0-16.0) g/dL Hct 35.5 L (37.0-47.0) % MCV 88.5 (80-100) fL MCH 29.4 (27.0-34.0) pg MCHC 33.2 (33.0-35.0) g/dL Plt Count 207 (150-450) 10^3/uL Neut % (Auto) 90.6 H (42.2-75.2) % Lymph % (Auto) 4.8 L (20.5-50.1) % Mcintosh % (Auto) 4.6 (2-8) % Eos % (Auto) 0.0 L (1.0-3.0) % Baso % (Auto) 0.0 (0.0-1.0) % Sodium 139 (135-145) mmol/L Potassium 4.0 (3.6-5.0) mmol/L Chloride 107 (101-111) mmol/L Carbon Dioxide 23.0 (21.0-31.0) mmol/L Anion Gap 13.0 BUN 20 H (7-18) mg/dL Creatinine 0.8 (0.6-1.3) mg/dL Est Cr Clr Drug Dosing 68.74 mL/min Estimated GFR (MDRD) > 60 Glucose 161 H (74-105) mg/dL Calcium 8.9 (8.4-10.2) mg/dl Med Orders - Current: Current Medications Acetaminophen (Tylenol) 650 mg PO Q4H PRN PRN Reason: Pain (Mild 1-3)/fever Last Admin: 07/14/16 14:45 Dose: 650 mg Albuterol (Proventil Neb Soln) 2.5 mg NEB Q2H PRN PRN Reason: shortness of breath/wheezing Last Admin: 07/15/16 03:06 Dose: 2.5 mg Albuterol/Ipratropium (Duoneb 3.0-0.5 Mg/3 Ml) 3 ml NEB Q4HRRT [facility] Last Admin: 07/15/16 12:09 Dose: 3 ml Benzonatate (Tessalon Perles) 100 mg PO TID PRN PRN Reason: Cough Last Admin: 07/15/16 03:30 Dose: 100 mg Enoxaparin Sodium (Lovenox) 40 mg SUBCUT DAILY [facility] Last Admin: 07/15/16 09:14 Dose: Not Given Guaifenesin (Robitussin) 100 mg PO Q6H [facility] Last Admin: 07/15/16 12:12 Dose: 100 mg Azithromycin 500 mg/ Sodium (Chloride) 250 mls @ 250 mls/hr IV Q24H [facility] Last Admin: 07/15/16 12:12 Dose: 250 mls/hr Ceftriaxone Sodium 1 gm/ (Sodium Chloride) 50 mls @ 100 mls/hr IV Q24H [facility] Last Admin: 07/14/16 17:08 Dose: 100 mls/hr Lisinopril (Prinivil) 10 mg PO DAILY [facility] Last Admin: 07/15/16 09:13 Dose: 10 mg Lorazepam (Ativan) 0.5 mg PO BEDTIME PRN PRN Reason: Sleep Last Admin: 07/14/16 23:59 Dose: 0.5 mg Prednisone (Prednisone) 40 mg PO WITHBREAKFAST [facility] Stop: 07/17/16 08:01 Last Admin: 07/15/16 09:13 Dose: 40 mg Promethazine HCl/Codeine (Phenergan With Codeine) 5 ml PO Q6H PRN PRN Reason: Cough Last Admin: 07/15/16 03:17 Dose: 5 ml Sodium Chloride (Saline Flush) 10 ml FLUSH ASDIRECTED PRN PRN Reason: Keep Vein Open Last Admin: 07/15/16 12:12 Dose: 10 ml Discontinued Medications Albuterol (Proventil Neb Soln) 2.5 mg NEB ONETIME ONE Stop: 07/14/16 00:41 Last Admin: 07/14/16 00:52 Dose: 2.5 mg Albuterol/Ipratropium (Duoneb 3.0-0.5 Mg/3 Ml) 3 ml NEB ONETIME ONE Stop: 07/13/16 22:50 Last Admin: 07/13/16 22:54 Dose: 3 ml Albuterol/Ipratropium (Duoneb 3.0-0.5 Mg/3 Ml) 3 ml NEB Q4H [facility] Last Admin: 07/14/16 02:44 Dose: 3 ml Guaifenesin (Robitussin) 100 mg PO Q6H [facility] Last Admin: 07/14/16 20:46 Dose: 100 mg Sodium Chloride (Normal Saline) 1,000 mls @ 200 mls/hr IV ONETIME ONE Stop: 07/14/16 04:09 Last Admin: 07/13/16 23:23 Dose: 200 mls/hr Levofloxacin/Dextrose 500 mg/ (Premix) 100 mls @ 100 mls/hr IV ONETIME ONE Stop: 07/14/16 01:40 Last Admin: 07/14/16 00:51 Dose: 100 mls/hr Methylprednisolone Sodium Succinate (Solu-Medrol) 125 mg IVPUSH ONETIME ONE Stop: 07/13/16 23:10 Last Admin: 07/13/16 23:23 Dose: 125 mg Methylprednisolone Sodium Succinate (Solu-Medrol) 40 mg IVPUSH Q8H [facility] Last Admin: 07/15/16 07:38 Dose: Not Given Potassium Chloride (Klor-Con 10) 40 meq PO ONETIME ONE Stop: 07/13/16 23:42 Last Admin: 07/13/16 23:47 Dose: 40 meq Potassium Chloride (Klor-Con 10) 40 meq PO ONETIME ONE Stop: 07/14/16 09:01 Last Admin: 07/14/16 09:44 Dose: 40 meq - Exam General: alert, oriented, cooperative, no acute distress HEENT: Pupils equal Lungs: Decreased breath sounds, Rales, Other (seems to be able to speak in longer sentences w/o getting winded /triggering cough ) Cardiovascular: regular rhythm, tachycardia Abdomen: bowel sounds present, soft, no tenderness Extremities: no edema Skin: warm Psy/Mental Status: alert, normal affect, normal mood - Problem List & Annotations (1) Reactive airway disease SNOMED Code(s): 455623282208 Code(s): J45.909 - UNSPECIFIED ASTHMA, UNCOMPLICATED Status: Acute Priority: Medium Current Visit: Yes Qualifiers: Asthma severity: unspecified severity (2) Bronchitis SNOMED Code(s): 26435900 Code(s): J40 - BRONCHITIS, NOT SPECIFIED ACUTE OR CHRONIC Status: Acute Priority: High Current Visit: Yes (3) Dyspnea SNOMED Code(s): 983423223 Code(s): R06.00 - DYSPNEA, UNSPECIFIED Status: Acute Priority: High Current Visit: Yes Qualifiers: Dyspnea type: shortness of breath Qualified Code(s): R06.02 - Shortness of breath (4) Hypertension SNOMED Code(s): 64686167 Code(s): I10 - ESSENTIAL (PRIMARY) HYPERTENSION Status: Acute Priority: High Current Visit: Yes Qualifiers: Hypertension type: essential hypertension Qualified Code(s): I10 - Essential (primary) hypertension (5) Hypokalemia SNOMED Code(s): 04175681 Code(s): E87.6 - HYPOKALEMIA Status: Acute Priority: Medium Current Visit: Yes - Problem List Review Problem List Initiated/Reviewed/Updated: Yes - My Orders Last 24 Hours: My Active Orders 07/14/16 17:00 cefTRIAXone [Rocephin] 1 gm Sodium Chloride 0.9% [Normal Saline] 50 ml IV Q24H 07/14/16 23:26 LORazepam [Ativan] 0.5 mg PO BEDTIME PRN 07/15/16 00:00 guaiFENesin [Robitussin] 100 mg PO Q6H 07/15/16 08:00 predniSONE 40 mg PO WITHBREAKFAST 07/16/16 06:00 CBC W/O DIFF,HEMOGRAM [HEME] Routine - Plan Plan:: Reactive airway dz pt present with Dyspnea with tachycardia/tachyneas and associated bronchial cough -CXR neg for infiltrate, no evidence or h/o CHF, No acute risks for PE, no cardiac symptoms -pt starting to respond to treatment - will cont nebs/steroids- but change to PO prednisone- short course -total 5 days Severe Bronchtiis - possible bronchia PNA -no infiltrate on CXR -influ negative -symptoms for at least one month - also associated sinus congestions - meets criteria for antibx -SIRS with sepsis- leukocytoss, (WBC 17) tachycardia, tachypnea- (rr 20-22) borderline temp at 37.9 , -h/o ruptured tendon and also now on steroids-will avoid levaquin - - cont azithromycin /rocephin- started 07/14/16 -f/u blood culture- neg to date sputum cultures - inadequate sample - -cont scheduled robitussin and PRN phenergan with codeine and tesselon pearles -cont IS and flutter HTN -pressures initially quite elevated but now improved - cont lisinopril Hypokalemia - resolved -s/p PO replacement - 4.0 today GERD -cont PPI -hold elevil while on azithro lovenox DVT PPX full code
[2016-07-15] MEDS: cefTRIAXone 1 GM in Sodium Chloride 0.9% 50 ML IV SCH (16:41)
[2016-07-15] MEDS: Acetaminophen 325 MG Tab PO PRN ×2 (18:07→22:33)
[2016-07-16] MEDS: guaiFENesin 100 MG/5 ML Soln 5 ML UD Cup PO SCH ×5 (00:01→23:38)
[2016-07-16] MEDS: Albuterol/Ipratropium 3.0-0.5 MG/3 ML Neb Soln NEB SCH ×6 (02:39→23:38)
[2016-07-16] MEDS: Codeine/Promethazine 10-6.25 MG/5 ML Syrup 5 ML UD Cup PO PRN ×2 (05:51→20:34)
[2016-07-16 06:51] LABS: CHLORIDE,CL 105 mmol/L (101-111); SODIUM,NA 139 mmol/L (135-145)
[2016-07-16] MEDS ORDERED: Amitriptyline 25 MG Tab PO PRN (08:52)
--- NOTE | 2016-07-16 08:52 | PCM.PN ---
- General Info Date of Service: 07/16/16 Admission Dx/Problem (Free Text): Admission Diagnosis/Problem Admission Diagnosis/Problem Reactive airways dysfunction syndrome Subjective Update: pt states that her cough is getting better since yesterday but still not enough to feel going home. she is still having persistent cough but better. she admits SOB when she coughs hard. she denies fever, chills, nausea, vomiting, chest pain , edema, or any other symptoms. - Patient Data Vitals - most recent: Last Vital Signs Temp 37.0 C 07/15/16 22:39 Pulse 88 07/16/16 07:12 Resp 18 07/15/16 22:39 BP 134/88 07/15/16 22:39 Pulse Ox 97 07/16/16 01:00 Weight - most recent: 58.967 kg I&O - last 24 hours: Intake & Output 07/15/16 07/16/16 07/16/16 22:59 06:59 14:59 Intake Total 364 Output Total 400 Balance -36 Lab Results last 24 hrs: Laboratory Results - last 24 hr 07/16/16 07/16/16 Range/Units 06:00 06:00 WBC 14.2 H (5.0-10.0) 10^3/uL RBC 3.90 L (4.2-5.4) 10^6/uL Hgb 11.4 L (12.0-16.0) g/dL Hct 34.6 L (37.0-47.0) % MCV 88.7 (80-100) fL MCH 29.2 (27.0-34.0) pg MCHC 32.9 L (33.0-35.0) g/dL Plt Count 241 (150-450) 10^3/uL Sodium 139 (135-145) mmol/L Potassium 4.1 (3.6-5.0) mmol/L Chloride 105 (101-111) mmol/L Carbon Dioxide 26.0 (21.0-31.0) mmol/L Anion Gap 12.1 BUN 23 H (7-18) mg/dL Creatinine 0.7 (0.6-1.3) mg/dL Est Cr Clr Drug Dosing 78.56 mL/min Estimated GFR (MDRD) > 60 Glucose 99 (74-105) mg/dL Calcium 8.5 (8.4-10.2) mg/dl Med Orders - Current: Current Medications Acetaminophen (Tylenol) 650 mg PO Q4H PRN PRN Reason: Pain (Mild 1-3)/fever Last Admin: 07/15/16 22:33 Dose: 650 mg Acetylcysteine (Mucomyst 20%) 600 mg INH [id number] [facility] Albuterol (Proventil Neb Soln) 2.5 mg NEB Q2H PRN PRN Reason: shortness of breath/wheezing Last Admin: 07/15/16 03:06 Dose: 2.5 mg Albuterol/Ipratropium (Duoneb 3.0-0.5 Mg/3 Ml) 3 ml NEB Q4HRRT [facility] Last Admin: 07/16/16 07:12 Dose: 3 ml Benzonatate (Tessalon Perles) 100 mg PO TID PRN PRN Reason: Cough Last Admin: 07/15/16 22:33 Dose: 100 mg Budesonide (Pulmicort) 0.5 mg NEB BIDRT [facility] Enoxaparin Sodium (Lovenox) 40 mg SUBCUT DAILY [facility] Last Admin: 07/15/16 09:14 Dose: Not Given Guaifenesin (Robitussin) 100 mg PO Q6H [facility] Last Admin: 07/16/16 05:49 Dose: 100 mg Azithromycin 500 mg/ Sodium (Chloride) 250 mls @ 250 mls/hr IV Q24H [facility] Last Admin: 07/15/16 12:12 Dose: 250 mls/hr Ceftriaxone Sodium 1 gm/ (Sodium Chloride) 50 mls @ 100 mls/hr IV Q24H [facility] Last Admin: 07/15/16 16:41 Dose: 100 mls/hr Lisinopril (Prinivil) 10 mg PO DAILY [facility] Last Admin: 07/15/16 09:13 Dose: 10 mg Lorazepam (Ativan) 0.5 mg PO BEDTIME PRN PRN Reason: Sleep Last Admin: 07/14/16 23:59 Dose: 0.5 mg Prednisone (Prednisone) 40 mg PO WITHBREAKFAST [facility] Stop: 07/17/16 08:01 Last Admin: 07/15/16 09:13 Dose: 40 mg Promethazine HCl/Codeine (Phenergan With Codeine) 5 ml PO Q6H PRN PRN Reason: Cough Last Admin: 07/16/16 05:51 Dose: 5 ml Sodium Chloride (Saline Flush) 10 ml FLUSH ASDIRECTED PRN PRN Reason: Keep Vein Open Last Admin: 07/15/16 16:41 Dose: 10 ml Discontinued Medications Albuterol (Proventil Neb Soln) 2.5 mg NEB ONETIME ONE Stop: 07/14/16 00:41 Last Admin: 07/14/16 00:52 Dose: 2.5 mg Albuterol/Ipratropium (Duoneb 3.0-0.5 Mg/3 Ml) 3 ml NEB ONETIME ONE Stop: 07/13/16 22:50 Last Admin: 07/13/16 22:54 Dose: 3 ml Albuterol/Ipratropium (Duoneb 3.0-0.5 Mg/3 Ml) 3 ml NEB Q4H [facility] Last Admin: 07/14/16 02:44 Dose: 3 ml Guaifenesin (Robitussin) 100 mg PO Q6H [facility] Last Admin: 07/14/16 20:46 Dose: 100 mg Sodium Chloride (Normal Saline) 1,000 mls @ 200 mls/hr IV ONETIME ONE Stop: 07/14/16 04:09 Last Admin: 07/13/16 23:23 Dose: 200 mls/hr Levofloxacin/Dextrose 500 mg/ (Premix) 100 mls @ 100 mls/hr IV ONETIME ONE Stop: 07/14/16 01:40 Last Admin: 07/14/16 00:51 Dose: 100 mls/hr Methylprednisolone Sodium Succinate (Solu-Medrol) 125 mg IVPUSH ONETIME ONE Stop: 07/13/16 23:10 Last Admin: 07/13/16 23:23 Dose: 125 mg Methylprednisolone Sodium Succinate (Solu-Medrol) 40 mg IVPUSH Q8H [facility] Last Admin: 07/15/16 07:38 Dose: Not Given Potassium Chloride (Klor-Con 10) 40 meq PO ONETIME ONE Stop: 07/13/16 23:42 Last Admin: 07/13/16 23:47 Dose: 40 meq Potassium Chloride (Klor-Con 10) 40 meq PO ONETIME ONE Stop: 07/14/16 09:01 Last Admin: 07/14/16 09:44 Dose: 40 meq - Exam General: alert, oriented, cooperative. No: no acute distress HEENT: Pupils equal, Pupils reactive, EOMI, Mucous membr. moist/pink Neck: supple, no JVD Lungs: Rhonchi, Wheezing, Other (persistant deep cough. fair air exchange ) Cardiovascular: regular rate, regular rhythm Abdomen: bowel sounds present, soft, no tenderness, no distension Extremities: no edema, normal pulses Skin: warm, dry, intact Neurological: no new focal deficit Psy/Mental Status: alert, normal affect, normal mood - Problem List Review Problem List Initiated/Reviewed/Updated: Yes - My Orders Last 24 Hours: My Active Orders 07/16/16 08:39 RT Aerosol Therapy [RC] ASDIRECTED CXR [Chest 2V] [CR] Routine 07/16/16 18:00 Budesonide [Pulmicort] 0.5 mg NEB BIDRT 07/16/16 19:00 Acetylcysteine [Mucomyst 20%] 600 mg INH [id number] 07/17/16 05:11 CBC WITH AUTO DIFF [HEME] AM - Plan Plan:: Reactive airway dz pt present with Dyspnea with tachycardia/tachyneas and associated bronchial cough -CXR on admission is neg for infiltrate, no evidence or h/o CHF, No acute risks for PE, no cardiac symptoms -pt starting to respond to treatment - will cont nebs/p.o. steroids -Continue expectorant -Continue Flatter/IS -Add Mucomyst neb and Budesonide neb. -Repeat CXR Severe Bronchtiis - possible bronchia PNA -no infiltrate on CXR -influ negative -symptoms for at least one month - also associated sinus congestions - meets criteria for antibx -SIRS with sepsis- leukocytoss, (WBC 17 on 07/15/16) tachycardia, tachypnea- (rr 20-22) borderline temp at 37.9- all are improving today -h/o ruptured tendon and also now on steroids-will avoid levaquin - - cont azithromycin /rocephin- started 07/14/16 -f/u blood culture- neg to date sputum cultures - inadequate sample - -cont scheduled robitussin and PRN phenergan with codeine and tesselon pearles -cont IS and flutter HTN -pressures initially quite elevated but now improved - cont lisinopril Hypokalemia - resolved -s/p PO replacement -resolved GERD -cont PPI Hx of Fibromyalgia -No symptoms at this time -Resume Amitriptyline as needed in start to become symptomatic and nothing else help but will try to avoid as possible since she is on Azithromycin -Kingsley as needed lovenox DVT PPX full code
[2016-07-16] MEDS ORDERED: Acetaminophen/HYDROcodone 325-5 MG Tab PO PRN (08:53)
[2016-07-16] MEDS: Lisinopril 10 MG Tab PO SCH (08:56)
[2016-07-16] MEDS: predniSONE 20 MG Tab PO SCH (08:57)
[2016-07-16] MEDS: Enoxaparin 40 MG/0.4 ML Syringe SUBCUT SCH (09:07)
--- NOTE | 2016-07-16 10:52 | CR ---
Clinical history: 60-year-old female "slow recovery" bronchial inflammation. Interpretation: Shaggy accentuation central lung markings with subtle peribronchial "cuffing" typical of reactive ai rway disease but... no new focal lobar infiltrate or atelectasis when compared to 13 July 2016, AP portable chest film. Calcifications arch of the aorta. Normal cardiac silhouette. No alveolar edema or dependent effusion. No lung mass or hilar lymphadenopathy. No atelectasis/collapse. No pneumothorax. CONCLUSION: Chronic bronchitis. No lobar pneumonia.
[2016-07-16] MEDS: Acetylcysteine 20% 200 MG/ML 30 ML Nebulizer Soln SDV INH SCH ×2 (11:16→18:32)
[2016-07-16] MEDS: Azithromycin 500 MG in Sodium Chloride 0.9% 250 ML IV SCH (11:57)
[2016-07-16] MEDS: cefTRIAXone 1 GM in Sodium Chloride 0.9% 50 ML IV SCH (17:19)
[2016-07-16] MEDS: Sodium Chloride 0.9% 10 ML Syringe FLUSH PRN (17:19)
[2016-07-16] MEDS: Budesonide 0.5 MG/2 ML Neb Susp NEB SCH (18:32)
[2016-07-16] MEDS ORDERED: Acetylcysteine 20% 200 MG/ML 30 ML Nebulizer Soln SDV INH SCH (19:00)
[2016-07-16] MEDS: Benzonatate 100 MG Cap PO PRN (20:32)
[2016-07-17] MEDS: Albuterol/Ipratropium 3.0-0.5 MG/3 ML Neb Soln NEB SCH ×5 (03:01→23:32)
[2016-07-17] MEDS: guaiFENesin 100 MG/5 ML Soln 5 ML UD Cup PO SCH ×4 (07:07→23:32)
[2016-07-17] MEDS: Budesonide 0.5 MG/2 ML Neb Susp NEB SCH ×2 (07:24→18:37)
[2016-07-17] MEDS: Enoxaparin 40 MG/0.4 ML Syringe SUBCUT SCH (08:32)
[2016-07-17] MEDS: Lisinopril 10 MG Tab PO SCH (09:09)
[2016-07-17] MEDS: predniSONE 20 MG Tab PO SCH (09:09)
[2016-07-17] MEDS: [UNRECOGNIZED DRUG - OTHER] PO SCH (09:11)
[2016-07-17] MEDS: Sodium Chloride 0.9% 10 ML Syringe FLUSH PRN (09:13)
--- NOTE | 2016-07-17 09:47 | PCM.PN ---
- General Info Date of Service: 07/17/16 Admission Dx/Problem (Free Text): Admission Diagnosis/Problem Admission Diagnosis/Problem Reactive airways dysfunction syndrome Subjective Update: pt states that her cough is getting much better. she still admits mild SOB. she denies fever, chills, nausea, vomiting, chest pain, edema, or any other symptoms. - Patient Data Vitals - most recent: Last Vital Signs Temp 37.1 C 07/17/16 07:48 Pulse 84 07/17/16 07:48 Resp 20 07/17/16 07:48 BP 138/90 07/17/16 09:09 Pulse Ox 97 07/17/16 07:48 Weight - most recent: 58.967 kg I&O - last 24 hours: Intake & Output 07/16/16 07/17/16 07/17/16 22:59 06:59 14:59 Intake Total 148 350 365 Balance 148 350 365 Lab Results last 24 hrs: Laboratory Results - last 24 hr 07/17/16 Range/Units 06:10 WBC 11.0 H (5.0-10.0) 10^3/uL RBC 3.97 L (4.2-5.4) 10^6/uL Hgb 11.6 L (12.0-16.0) g/dL Hct 35.2 L (37.0-47.0) % MCV 88.7 (80-100) fL MCH 29.2 (27.0-34.0) pg MCHC 33.0 (33.0-35.0) g/dL Plt Count 248 (150-450) 10^3/uL Neut % (Auto) 64.9 (42.2-75.2) % Lymph % (Auto) 25.4 (20.5-50.1) % [place] % (Auto) 9.2 H (2-8) % Eos % (Auto) 0.5 L (1.0-3.0) % Baso % (Auto) 0.0 (0.0-1.0) % Med Orders - Current: Current Medications Acetaminophen (Tylenol) 650 mg PO Q4H PRN PRN Reason: Pain (Mild 1-3)/fever Last Admin: 07/15/16 22:33 Dose: 650 mg Acetaminophen/Hydrocodone Bitart ([place] 325-5 Mg) 1 tab PO Q4H PRN PRN Reason: moderate to sever pain Last Admin: 07/16/16 20:34 Dose: 1 tab Acetylcysteine (Mucomyst 20%) 600 mg INH [id number] [facility] Last Admin: 07/16/16 18:32 Dose: 600 mg Albuterol (Proventil Neb Soln) 2.5 mg NEB Q2H PRN PRN Reason: shortness of breath/wheezing Last Admin: 07/15/16 03:06 Dose: 2.5 mg Albuterol/Ipratropium (Duoneb 3.0-0.5 Mg/3 Ml) 3 ml NEB Q4HRRT [facility] Last Admin: 07/17/16 07:24 Dose: 3 ml Amitriptyline HCl (Elavil) 25 mg PO BEDTIME PRN PRN Reason: Fibromyalgia pain Benzonatate (Tessalon Perles) 100 mg PO TID PRN PRN Reason: Cough Last Admin: 07/16/16 20:32 Dose: 100 mg Budesonide (Pulmicort) 0.5 mg NEB BIDRT [facility] Last Admin: 07/17/16 07:24 Dose: 0.5 mg Enoxaparin Sodium (Lovenox) 40 mg SUBCUT DAILY [facility] Last Admin: 07/17/16 08:32 Dose: Not Given Guaifenesin (Robitussin) 100 mg PO Q6H [facility] Last Admin: 07/17/16 07:07 Dose: Not Given Azithromycin 500 mg/ Sodium (Chloride) 250 mls @ 250 mls/hr IV Q24H [facility] Last Admin: 07/16/16 11:57 Dose: 250 mls/hr Ceftriaxone Sodium 1 gm/ (Sodium Chloride) 50 mls @ 100 mls/hr IV Q24H [facility] Last Admin: 07/16/16 17:19 Dose: 100 mls/hr Lisinopril (Prinivil) 10 mg PO DAILY [facility] Last Admin: 07/17/16 09:09 Dose: 10 mg Lorazepam (Ativan) 0.5 mg PO BEDTIME PRN PRN Reason: Sleep Last Admin: 07/14/16 23:59 Dose: 0.5 mg Ultimate Faith Probiotic Own Med 1 each PO DAILY [facility] Last Admin: 07/17/16 09:11 Dose: 1 each Promethazine HCl/Codeine (Phenergan With Codeine) 5 ml PO Q6H PRN PRN Reason: Cough Last Admin: 07/16/16 20:34 Dose: 5 ml Sodium Chloride (Saline Flush) 10 ml FLUSH ASDIRECTED PRN PRN Reason: Keep Vein Open Last Admin: 07/17/16 09:13 Dose: 10 ml Discontinued Medications Acetylcysteine (Mucomyst 20%) 600 mg INH [id number] [facility] Albuterol (Proventil Neb Soln) 2.5 mg NEB ONETIME ONE Stop: 07/14/16 00:41 Last Admin: 07/14/16 00:52 Dose: 2.5 mg Albuterol/Ipratropium (Duoneb 3.0-0.5 Mg/3 Ml) 3 ml NEB ONETIME ONE Stop: 07/13/16 22:50 Last Admin: 07/13/16 22:54 Dose: 3 ml Albuterol/Ipratropium (Duoneb 3.0-0.5 Mg/3 Ml) 3 ml NEB Q4H [facility] Last Admin: 07/14/16 02:44 Dose: 3 ml Guaifenesin (Robitussin) 100 mg PO Q6H [facility] Last Admin: 07/14/16 20:46 Dose: 100 mg Sodium Chloride (Normal Saline) 1,000 mls @ 200 mls/hr IV ONETIME ONE Stop: 07/14/16 04:09 Last Admin: 07/13/16 23:23 Dose: 200 mls/hr Levofloxacin/Dextrose 500 mg/ (Premix) 100 mls @ 100 mls/hr IV ONETIME ONE Stop: 07/14/16 01:40 Last Admin: 07/14/16 00:51 Dose: 100 mls/hr Methylprednisolone Sodium Succinate (Solu-Medrol) 125 mg IVPUSH ONETIME ONE Stop: 07/13/16 23:10 Last Admin: 07/13/16 23:23 Dose: 125 mg Methylprednisolone Sodium Succinate (Solu-Medrol) 40 mg IVPUSH Q8H [facility] Last Admin: 07/15/16 07:38 Dose: Not Given Potassium Chloride (Klor-Con 10) 40 meq PO ONETIME ONE Stop: 07/13/16 23:42 Last Admin: 07/13/16 23:47 Dose: 40 meq Potassium Chloride (Klor-Con 10) 40 meq PO ONETIME ONE Stop: 07/14/16 09:01 Last Admin: 07/14/16 09:44 Dose: 40 meq Prednisone (Prednisone) 40 mg PO WITHBREAKFAST JOSE Stop: 07/17/16 08:01 Last Admin: 07/17/16 09:09 Dose: 40 mg - Exam General: alert, oriented, cooperative. No: no acute distress HEENT: Pupils equal, Pupils reactive, EOMI, Mucous membr. moist/pink Neck: supple, no JVD Lungs: Normal respiratory effort, Decreased breath sounds, Wheezing. No: Crackles, Rales, Rhonchi (over all improved sounds), Stridor Cardiovascular: regular rate, regular rhythm Extremities: no edema, normal pulses Neurological: no new focal deficit Psy/Mental Status: alert, normal affect, normal mood - Problem List Review Problem List Initiated/Reviewed/Updated: Yes - My Orders Last 24 Hours: My Active Orders 07/16/16 08:52 Amitriptyline [Elavil] 25 mg PO BEDTIME PRN 07/16/16 08:53 Acetaminophen/HYDROcodone [[place] 325-5 MG] 1 tab PO Q4H PRN 07/16/16 09:35 Acetylcysteine [Mucomyst 20%] 600 mg INH [id number] 07/16/16 18:00 Budesonide [Pulmicort] 0.5 mg NEB BIDRT 07/17/16 09:00 Non-Formulary Medication [NF Drug] 1 each PO DAILY - Plan Plan:: Reactive airway dz pt present with Dyspnea with tachycardia/tachyneas and associated bronchial cough -CXR on admission is neg for infiltrate, no evidence or h/o CHF, No acute risks for PE, no cardiac symptoms -pt starting to respond to treatment -p.o. steroids -Continue expectorant -Continue Flatter/IS -Repeated CXR on 07/16/16 shows no acute findings -Change Duoneb from q4h to q6h -Continue Mucomyst neb and Budesonide neb. Severe Bronchtiis - possible bronchia PNA -no infiltrate on CXR -influ negative -symptoms for at least one month - also associated sinus congestions - meets criteria for antibx -SIRS with sepsis- leukocytoss, (WBC 17 on 07/15/16) tachycardia, tachypnea- (rr 20-22) borderline temp at 37.9- all are improving today -h/o ruptured tendon and also now on steroids-will avoid levaquin - - cont azithromycin /rocephin- started 07/14/16 -f/u blood culture- neg to date sputum cultures - inadequate sample - -cont scheduled robitussin and PRN phenergan with codeine and tesselon pearles -cont IS and flutter HTN -pressures initially quite elevated but now improved - cont lisinopril Hypokalemia - resolved -s/p PO replacement -resolved GERD -cont PPI Hx of Fibromyalgia -No symptoms at this time -Resume Amitriptyline as needed in start to become symptomatic and nothing else help but will try to avoid as possible since she is on Azithromycin -[place] as needed lovenox DVT PPX full code
[2016-07-17] MEDS: Acetaminophen 325 MG Tab PO PRN (10:53)
[2016-07-17] MEDS: Azithromycin 500 MG in Sodium Chloride 0.9% 250 ML IV SCH (11:48)
[2016-07-17] MEDS: Acetylcysteine 20% 200 MG/ML 30 ML Nebulizer Soln SDV INH SCH ×2 (13:32→18:37)
[2016-07-17] MEDS: cefTRIAXone 1 GM in Sodium Chloride 0.9% 50 ML IV SCH (16:56)
[2016-07-18] MEDS: Albuterol/Ipratropium 3.0-0.5 MG/3 ML Neb Soln NEB SCH ×2 (01:04→07:19)
[2016-07-18] MEDS: guaiFENesin 100 MG/5 ML Soln 5 ML UD Cup PO SCH (05:30)
[2016-07-18] MEDS: Budesonide 0.5 MG/2 ML Neb Susp NEB SCH (07:20)
[2016-07-18] MEDS: Acetylcysteine 20% 200 MG/ML 30 ML Nebulizer Soln SDV INH SCH (07:20)
[2016-07-18 07:22] VITALS: BP 138/92
[2016-07-18] MEDS: Enoxaparin 40 MG/0.4 ML Syringe SUBCUT SCH (08:30)
[2016-07-18] MEDS: Lisinopril 10 MG Tab PO SCH (08:35)
[2016-07-18] MEDS: [UNRECOGNIZED DRUG - OTHER] PO SCH (08:36)
--- NOTE | 2016-07-18 09:42 | PCM.DCSUM1 ---
Discharge Summary - Hospital Course Free Text/Narrative:: presented with cough, shortness of breath. Noted to have tachycardia, tachypnea, hypoxemia on admission. Reactive airway dz pt present with Dyspnea with tachycardia/tachyneas and associated bronchial cough -CXR on admission is neg for infiltrate, no evidence or h/o CHF, No acute risks for PE, no cardiac symptoms the patient was treated with nebulizers and steroids. repeat CXR on 07/16/16 shows no acute findings symptoms have improved. We'll discharge on inhaler therapy. Severe Bronchtiis - possible bronchia PNA -no infiltrate on CXR -influ negative -symptoms for at least one month - also associated sinus congestions - meets criteria for antibx -SIRS with sepsis present on admission- leukocytosis, (WBC 17 on 07/15/16) tachycardia, tachypnea- (rr 20-22) borderline temp at 37.9 - treated with azithromycin /rocephin- started 07/14/16 and finished on 18 July Discharge with oral Augmentin -f/u blood culture- neg to date sputum cultures - inadequate sample - HTN -pressures initially quite elevated but now improved - cont lisinopril Hypokalemia - resolved -s/p PO replacement GERD -cont PPI - Discharge Data Discharge Date: 07/18/16 Discharge Disposition: Home, Self-Care 01 Condition: Good - Discharge Diagnosis/Problem(s) (1) Sepsis SNOMED Code(s): 70032793 ICD Code: A41.9 - SEPSIS, UNSPECIFIED ORGANISM Status: Acute Current Visit: Yes (2) Bronchitis SNOMED Code(s): 33872396 ICD Code: J40 - BRONCHITIS, NOT SPECIFIED ACUTE OR CHRONIC Status: Acute Priority: High Current Visit: Yes (3) Dyspnea SNOMED Code(s): 976703596 ICD Code: R06.00 - DYSPNEA, UNSPECIFIED Status: Acute Priority: High Current Visit: Yes Qualifiers: Dyspnea type: shortness of breath Qualified Code(s): R06.02 - Shortness of breath (4) Hypertension SNOMED Code(s): 34998775 ICD Code: I10 - ESSENTIAL (PRIMARY) HYPERTENSION Status: Acute Priority: High Current Visit: Yes Qualifiers: Hypertension type: essential hypertension Qualified Code(s): I10 - Essential (primary) hypertension (5) Hypokalemia SNOMED Code(s): 57516134 ICD Code: E87.6 - HYPOKALEMIA Status: Acute Priority: Medium Current Visit: Yes (6) Reactive airway disease SNOMED Code(s): 734131505533 ICD Code: J45.909 - UNSPECIFIED ASTHMA, UNCOMPLICATED Status: Acute Priority: Medium Current Visit: Yes Qualifiers: Asthma severity: unspecified severity - Patient Instructions Diet: Heart Healthy Diet Activity: As Tolerated - Discharge Plan Prescriptions/Med Rec: Albuterol [Proventil HFA] 6.7 gm INH Q4H PRN #1 inhaler PRN Reason: for SOB Amoxicillin/Potassium Clav [Augmentin 875-125 Tablet] 1 each PO BID #10 tablet Codeine/Promethazine [Phenergan with Codeine] 5 ml PO Q6H PRN #100 ml PRN Reason: Cough Fluticasone/Salmeterol [Advair Diskus 100-50] 1 puff INH BID #1 diskus Home Medications: Home Meds Lisinopril 10 mg PO DAILY 07/13/16 [History] L.acidoph,Paracasei, B.lactis [Probiotic] 1 each PO DAILY PRN 07/16/16 [History] Acetaminophen/HYDROcodone [[place] 325-5 MG] 1 tab PO Q4H PRN #0 tablet 07/18/16 [ Rx] Albuterol [Proventil HFA] 6.7 gm INH Q4H PRN #1 inhaler 07/18/16 [Rx] Amitriptyline [Elavil] 25 mg PO BEDTIME PRN #0 tablet 07/18/16 [Rx] Amoxicillin/Potassium Clav [Augmentin 875-125 Tablet] 1 each PO BID #10 tablet 07/18/16 [Rx] Benzonatate [Tessalon Perles] 100 mg PO TID PRN #0 cap 07/18/16 [Rx] Codeine/Promethazine [Phenergan with Codeine] 5 ml PO Q6H PRN #100 ml 07/18/16 [ Rx] Fluticasone/Salmeterol [Advair Diskus 100-50] 1 puff INH BID #1 diskus 07/18/16 [Rx] Patient Handouts: Albuterol inhalation solution, Acute Bronchitis Referrals: PCP,Unobtain [Primary Care Provider] - ([facility] in 1 week) - Discharge Summary/Plan Comment DC Time >30 min.: No - General Info Functional Status: Reports: pain controlled, tolerating diet - Review of Systems General: Denies: fever, weakness Pulmonary: Denies: shortness of breath, wheezing Cardiovascular: Denies: chest pain Gastrointestinal: Denies: Abdominal pain Neurological: Denies: confusion - Patient Data Vitals - Most Recent: Last Vital Signs Temp 37.1 C 07/18/16 07:20 Pulse 78 07/18/16 07:20 Resp 20 07/18/16 07:20 BP 138/92 H 07/18/16 08:35 Pulse Ox 98 07/18/16 07:20 Weight - Most Recent: 58.967 kg I&O - Last 24 hours: Intake & Output 07/17/16 07/18/16 07/18/16 22:59 06:59 14:59 Intake Total 100 225 Balance 100 225 Med Orders - Current: Current Medications Acetaminophen (Tylenol) 650 mg PO Q4H PRN PRN Reason: Pain (Mild 1-3)/fever Last Admin: 07/17/16 10:53 Dose: 650 mg Acetaminophen/Hydrocodone Bitart ([place] 325-5 Mg) 1 tab PO Q4H PRN PRN Reason: moderate to sever pain Last Admin: 07/16/16 20:34 Dose: 1 tab Acetylcysteine (Mucomyst 20%) 600 mg INH [id number] [facility] Last Admin: 07/18/16 07:20 Dose: 600 mg Albuterol (Proventil Neb Soln) 2.5 mg NEB Q2H PRN PRN Reason: shortness of breath/wheezing Last Admin: 07/15/16 03:06 Dose: 2.5 mg Albuterol/Ipratropium (Duoneb 3.0-0.5 Mg/3 Ml) 3 ml NEB Q6HRRT [facility] Last Admin: 07/18/16 07:19 Dose: 3 ml Amitriptyline HCl (Elavil) 25 mg PO BEDTIME PRN PRN Reason: Fibromyalgia pain Benzonatate (Tessalon Perles) 100 mg PO TID PRN PRN Reason: Cough Last Admin: 07/16/16 20:32 Dose: 100 mg Budesonide (Pulmicort) 0.5 mg NEB BIDRT [facility] Last Admin: 07/18/16 07:20 Dose: 0.5 mg Enoxaparin Sodium (Lovenox) 40 mg SUBCUT DAILY [facility] Last Admin: 07/18/16 08:30 Dose: Not Given Guaifenesin (Robitussin) 100 mg PO Q6H [facility] Last Admin: 07/18/16 05:30 Dose: 100 mg Azithromycin 500 mg/ Sodium (Chloride) 250 mls @ 250 mls/hr IV Q24H [facility] Last Admin: 07/17/16 11:48 Dose: 250 mls/hr Ceftriaxone Sodium 1 gm/ (Sodium Chloride) 50 mls @ 100 mls/hr IV Q24H [facility] Last Admin: 07/17/16 16:56 Dose: 100 mls/hr Lisinopril (Prinivil) 10 mg PO DAILY [facility] Last Admin: 07/18/16 08:35 Dose: 10 mg Lorazepam (Ativan) 0.5 mg PO BEDTIME PRN PRN Reason: Sleep Last Admin: 07/14/16 23:59 Dose: 0.5 mg Ultimate Faith Probiotic Own Med 1 each PO DAILY [facility] Last Admin: 07/18/16 08:36 Dose: 1 each Promethazine HCl/Codeine (Phenergan With Codeine) 5 ml PO Q6H PRN PRN Reason: Cough Last Admin: 07/16/16 20:34 Dose: 5 ml Sodium Chloride (Saline Flush) 10 ml FLUSH ASDIRECTED PRN PRN Reason: Keep Vein Open Last Admin: 07/17/16 09:13 Dose: 10 ml Discontinued Medications Acetylcysteine (Mucomyst 20%) 600 mg INH [id number] [facility] Albuterol (Proventil Neb Soln) 2.5 mg NEB ONETIME ONE Stop: 07/14/16 00:41 Last Admin: 07/14/16 00:52 Dose: 2.5 mg Albuterol/Ipratropium (Duoneb 3.0-0.5 Mg/3 Ml) 3 ml NEB ONETIME ONE Stop: 07/13/16 22:50 Last Admin: 07/13/16 22:54 Dose: 3 ml Albuterol/Ipratropium (Duoneb 3.0-0.5 Mg/3 Ml) 3 ml NEB Q4H [facility] Last Admin: 07/14/16 02:44 Dose: 3 ml Albuterol/Ipratropium (Duoneb 3.0-0.5 Mg/3 Ml) 3 ml NEB Q4HRRT [facility] Last Admin: 07/17/16 07:24 Dose: 3 ml Guaifenesin (Robitussin) 100 mg PO Q6H [facility] Last Admin: 07/14/16 20:46 Dose: 100 mg Sodium Chloride (Normal Saline) 1,000 mls @ 200 mls/hr IV ONETIME ONE Stop: 07/14/16 04:09 Last Admin: 07/13/16 23:23 Dose: 200 mls/hr Levofloxacin/Dextrose 500 mg/ (Premix) 100 mls @ 100 mls/hr IV ONETIME ONE Stop: 07/14/16 01:40 Last Admin: 07/14/16 00:51 Dose: 100 mls/hr Methylprednisolone Sodium Succinate (Solu-Medrol) 125 mg IVPUSH ONETIME ONE Stop: 07/13/16 23:10 Last Admin: 07/13/16 23:23 Dose: 125 mg Methylprednisolone Sodium Succinate (Solu-Medrol) 40 mg IVPUSH Q8H [facility] Last Admin: 07/15/16 07:38 Dose: Not Given Potassium Chloride (Klor-Con 10) 40 meq PO ONETIME ONE Stop: 07/13/16 23:42 Last Admin: 07/13/16 23:47 Dose: 40 meq Potassium Chloride (Klor-Con 10) 40 meq PO ONETIME ONE Stop: 07/14/16 09:01 Last Admin: 07/14/16 09:44 Dose: 40 meq Prednisone (Prednisone) 40 mg PO WITHBREAKFAST [facility] Stop: 07/17/16 08:01 Last Admin: 07/17/16 09:09 Dose: 40 mg - Exam Quality Assessment: Denies: supplemental oxygen General: Reports: alert, oriented Lungs: Reports: Rhonchi Cardiovascular: Reports: regular rate, regular rhythm Extremities: Reports: no edema *Q Meaningful Use (DIS) - VTE *Q VTE Criteria *Q: - Stroke *Q Stroke Criteria *Q: - AMI *Q AMI Criteria *Q:
== END 2016-07-18 10:30 | disposition home or self-care (01) | DRG 720 ==
LOC: DL.ED 22:42 → UNDOADMOB 07-14 01:21 → DL.MS 07-14 01:21 → OBSVTOIN 07-14 10:53
PROVIDERS: ADMIT Internal Medicine; ATTEND Internal Medicine
DX: A41.9 Sepsis, unspecified organism (principal); J45.909 Unspecified asthma, uncomplicated; J40 Bronchitis, not specified as acute or chronic; E87.6 Hypokalemia; K21.9 Gastro-esophageal reflux disease without esophagitis; I10 Essential (primary) hypertension; Z79.899 Other long term (current) drug therapy; Z91.041 Radiographic dye allergy status; M79.7 Fibromyalgia
CPT/HCPCS: 36415; 71010; 71020; 80048; 80053; 83605; 83880; 84484; 85025; 85027; 85379; 87040; 87070; 87205; 87804; 93005; 94640; 96365; 96366; 96367; 96375; 99285; A9270-GY; J0456; J0696; J1650; J1956; J2920; J2930; J7030; J7050; J7620-GY

== ENCOUNTER 2017-05-26 07:52 | Day surgery (SDC) | payer BC ==
[~2017-05-26 07:52] MED LIST: Midazolam 1 MG/ML 2 ML SDV ONE; fentaNYL 100 MCG/2 ML SDV ONE
[2017-05-26] MEDS ORDERED: Midazolam 1 MG/ML 2 ML SDV IV ONE ×4 (07:53→09:22)
[2017-05-26] MEDS ORDERED: fentaNYL 100 MCG/2 ML SDV IV ONE ×2 (07:53→09:18)
[2017-05-26] MEDS ORDERED: Lactated Ringers 1,000 ML IV SCH (08:30)
--- NOTE | 2017-05-26 12:21 | OR ---
DATE: 05/26/2017 PREOPERATIVE DIAGNOSIS: Screening colonoscopy. POSTOPERATIVE DIAGNOSIS: Screening colonoscopy. PROCEDURES: Total colonoscopy. ANESTHESIA: Conscious sedation with IV Versed and fentanyl. SPECIMEN: None. FINDINGS: Normal colonoscopy. RECOMMENDATION: Followup screening colonoscopy in 10 years. INDICATION FOR PROCEDURE: This 61-year-old female, has not had a prior colonoscopy. She is referred for screening colonoscopy by [facility]. PROCEDURE IN DETAIL: After adequate preparation, a colonoscope was inserted into the rectum. This was easily passed all the way to the cecum. Confirmation of the cecum was made by visualization of the ileocecal valve, the appendiceal opening, and palpation in the right lower quadrant. A photograph of the appendiceal opening and bowel were taken. The bowel prep was very good. On withdrawal of the scope, no abnormalities were noted. Air was suctioned from the colon, and the scope was removed. [facility] /[id number]
[2017-05-26 14:38] VITALS: BP 116/75
== END 2017-05-26 11:38 | disposition home or self-care (01) ==
LOC: DL.ENDO 07:52
PROVIDERS: ATTEND Surgery
DX: Z12.11 Encounter for screening for malignant neoplasm of colon (principal); J45.909 Unspecified asthma, uncomplicated; Z91.041 Radiographic dye allergy status; Z88.6 Allergy status to analgesic agent; Z88.5 Allergy status to narcotic agent; Z98.890 Other specified postprocedural states
CPT/HCPCS: 45378; J2250; J3010; J7120

== ENCOUNTER 2018-06-22 10:15 | Emergency (ER) | payer BC ==
[~2018-06-22 10:15] MED LIST changes: +Aspirin 81 MG Tab.Chew PO ONE; -Midazolam 1 MG/ML 2 ML SDV ONE; -fentaNYL 100 MCG/2 ML SDV ONE
[2018-06-22] MEDS: Sodium Chloride 0.9% 10 ML Syringe FLUSH PRN ×2 (10:26→12:37)
[2018-06-22] MEDS ORDERED: Ondansetron 4 MG/2 ML SDV IV ONE ×2 (10:35→11:45)
[2018-06-22] MEDS ORDERED: Nitroglycerin 0.4 MG Tab.SL SL PRN (10:35)
[2018-06-22 10:42] VITALS: BP 158/88
[2018-06-22 10:49] LABS: ANION GAP 17.1; CHLORIDE,CL 98 mmol/L (101-111); SODIUM,NA 138 mmol/L (135-145)
--- NOTE | 2018-06-22 11:32 | EDM.PDOC ---
ED HPI GENERAL MEDICAL PROBLEM - General Chief Complaint: Chest Pain Stated Complaint: UNKNOWN Time Seen by Provider: 06/22/18 10:15 Source of Information: Reports: Patient, RN, RN Notes Reviewed History Limitations: Reports: No Limitations - History of Present Illness INITIAL COMMENTS - FREE TEXT/NARRATIVE: Patient felt a ache in her chest about 0900 this morning. She went to work at 0930. The pain in her chest gradual increased and radiated up her left neck to her left ear. Rates pain 6/10 and describes pain as a ache and pressure. She suddenly felt nauseated, lightheaded, diaphoretic and felt faint. No vomiting or syncope. She has felt a fluttering in his chest. 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 She has history of hypertension managed with lisinopril. Family history of father had HI in his 70s. Onset: Today Onset Date: 06/22/18 Onset Time: 09:00 (progressively worsened. ) Duration: Getting Worse Location: Reports: Chest Quality: Reports: Ache, Pressure Severity: Moderate Associated Symptoms: Reports: Diaphoresis, Nausea/Vomiting, Shortness of Breath Left Chest Pain Score (Numeric/FACES): 6 - Related Data Allergies Allergy/AdvReac Type Severity Reaction Status Date / Time Iodinated Contrast- Oral and Allergy Severe Shortness Verified 05/26/17 08:47 IV Dye of Breath [Iodinated Contrast Media - Oral and] codeine Allergy Nausea Verified 05/26/17 08:47 meperidine [From Demerol] Allergy Nausea and Verified 05/26/17 08:47 Vomiting Home Meds: Home Meds Lisinopril 10 mg PO DAILY 07/13/16 [History] L.acidoph,Paracasei, B.lactis [Probiotic] 1 each PO DAILY PRN 07/16/16 [History] Amitriptyline [Elavil] 12.5 mg PO BEDTIME 04/25/17 [History] Fluticasone/Salmeterol [Advair Diskus 100-50] 1 puff INH BID PRN 04/25/17 [ History] Levothyroxine Sodium [Synthroid] 37.5 mcg PO DAILY 05/25/17 [History] predniSONE [Prednisone] 10 mg PO DAILY 06/22/18 [History] Past Medical History HEENT History: Reports: Other (See Below) Other HEENT History: left tmj Cardiovascular History: Reports: Hypertension Respiratory History: Reports: Asthma, Bronchitis, Recurrent, Other (See Below) Other Respiratory History: Reactive Airway Disease, treated fir bronchitis within last week Gastrointestinal History: Reports: GERD Genitourinary History: Reports: None WOOL PULLER History: Reports: , Spontaneous Other WOOL PULLER History: 1 nvd and 1 miscarriage Musculoskeletal History: Reports: Arthritis, Back Pain, Chronic, Fibromyalgia, Osteoarthritis Other Musculoskeletal History: back surgery x2, and ruptured achilles tendon. Neurological History: Reports: None Psychiatric History: Reports: None Endocrine/Metabolic History: Reports: Hyperthyroidism Hematologic History: Reports: None Immunologic History: Reports: None Oncologic (Cancer) History: Reports: None Dermatologic History: Reports: None - Infectious Disease History Infectious Disease History: Reports: Chicken Pox, Measles, Mumps, Shingles - Past Surgical History Head Surgeries/Procedures: Reports: None HEENT Surgical History: Reports: None Cardiovascular Surgical History: Reports: None Respiratory Surgical History: Reports: None GI Surgical History: Reports: EGD Female Surgical History: Reports: D&C Musculoskeletal Surgical History: Reports: Other (See Below) Other Musculoskeletal Surgeries/Procedures:: neck, back surgery Social & Family History - Family History Family Medical History: Noncontributory Cardiac: Reports: Hypertension, HI Other Cardiac Family History: father had HI in his 70s GI: Reports: Celiac Disease Neurological: Reports: Alzheimers Disease - Tobacco Use Smoking Status *Q: Never Smoker Second Hand Smoke Exposure: No - Caffeine Use Caffeine Use: Reports: Coffee, Soda Other Caffeine Use: 2 times a week - Recreational Drug Use Recreational Drug Use: No - Living Situation & Occupation Occupation: Employed ED ROS GENERAL - Review of Systems Review Of Systems: ROS reveals no pertinent complaints other than HPI. ED EXAM, GENERAL - Physical Exam Exam: See Below Exam Limited By: No Limitations General Appearance: Alert, WD/WN, Mild Distress Eye Exam: Bilateral Eye: Normal Inspection, PERRL Ears: Normal External Exam, Normal Canal, Hearing Grossly Normal, Normal TMs Nose: Normal Inspection, Normal Mucosa, No Blood Throat/Mouth: Normal Inspection, Normal Lips, Normal Teeth, Normal Gums, Normal Oropharynx, Normal Voice, No Airway Compromise Head: Atraumatic, Normocephalic Neck: Normal Inspection, Supple, Non-Tender, Full Range of Motion Respiratory/Chest: No Respiratory Distress, Lungs Clear, Normal Breath Sounds, No Accessory Muscle Use, Chest Non-Tender Cardiovascular: Normal Peripheral Pulses, Regular Rate, Rhythm, No Edema, No Gallop, No JVD, No Murmur, No Rub Peripheral Pulses: 2+: Posterior Tibial (L), Posterior Tibial (R) GI/Abdominal: Normal Bowel Sounds, Soft, Non-Tender, No Organomegaly, No Distention Back Exam: Normal Inspection, Full Range of Motion, NT Extremities: Normal Inspection, Normal Range of Motion, Non-Tender, Normal Capillary Refill, No Pedal Edema Neurological: Alert, Oriented, No Motor/Sensory Deficits Psychiatric: Normal Affect, Normal Mood Skin Exam: Warm, Dry, Intact, Normal Color, No Rash Lymphatic: No Adenopathy EKG INTERPRETATION EKG Date: 06/22/18 Time: 10:13 Rhythm: Other (Sinus tach) Rate (Beats/Min): 103 [place]: Normal P-Wave: Present (Prob. left atrial abnl.) QRS: Normal ST-T: Normal QT: Normal Comparison: NA - No Prior EKG EKG Interpretation Comments: Repeat EKG @ 1431HRS: SR, Rate 78, no acute changes compared to prior EKG. Course - Vital Signs Last Recorded V/S: Last Vital Signs Temp 36.8 C 06/22/18 10:11 Pulse 110 H 06/22/18 10:11 Resp 18 06/22/18 10:11 BP 158/88 H 06/22/18 10:42 Pulse Ox 99 06/22/18 10:11 - Orders/Labs/Meds Orders: Active Orders 24 hr Category Date Time Status EKG 12 Lead [EKG Documentation Completion] [RC] STAT Care 06/22/18 10:09 Active EKG Documentation Completion [RC] ROUTINE Care 06/22/18 14:30 Active Peripheral IV Care [RC] . DIRECTED Care 06/22/18 10:09 Active Regular Diet [DIET] Diet 06/22/18 Lunch Active Nitroglycerin [Nitrostat] Med 06/22/18 10:35 Active 0.4 mg SL Q5M PRN Sodium Chloride 0.9% [Saline Flush] Med 06/22/18 10:09 Active 10 ml FLUSH ASDIRECTED PRN Peripheral IV Insertion Adult [OM.PC] Stat Oth 06/22/18 10:09 Ordered Medication Orders Nitroglycerin (Nitrostat) 0.4 mg SL Q5M PRN PRN Reason: Chest Pain Last Admin: 06/22/18 10:42 Dose: 0.4 mg Sodium Chloride (Saline Flush) 10 ml FLUSH ASDIRECTED PRN PRN Reason: Keep Vein Open Last Admin: 06/22/18 12:37 Dose: 10 ml Admin: 06/22/18 10:26 Dose: 10 ml Labs: Laboratory Tests 06/22/18 06/22/18 06/22/18 Range/Units 10:24 10:24 10:24 WBC 7.6 (5.0-10.0) 10^3/uL RBC 4.89 (4.2-5.4) 10^6/uL Hgb 14.4 D (12.0-16.0) g/dL Hct 42.8 (37.0-47.0) % MCV 87.5 (80-100) fL MCH 29.4 (27.0-34.0) pg MCHC 33.6 (33.0-35.0) g/dL Plt Count 279 (150-450) 10^3/uL Neut % (Auto) 64.2 (42.2-75.2) % Lymph % (Auto) 27.1 (20.5-50.1) % [place] % (Auto) 7.2 (2-8) % Eos % (Auto) 1.4 (1.0-3.0) % Baso % (Auto) 0.1 (0.0-1.0) % D-Dimer, Quantitative 106 (0-400) ng/mL Sodium 138 (135-145) mmol/L Potassium 3.1 L (3.6-5.0) mmol/L Chloride 98 L (101-111) mmol/L Carbon Dioxide 26.0 (21.0-31.0) mmol/L Anion Gap 17.1 BUN 16 (7-18) mg/dL Creatinine 1.1 (0.6-1.3) mg/dL Est Cr Clr Drug Dosing 49.85 mL/min Estimated GFR (MDRD) 50 BUN/Creatinine Ratio 14.54 Glucose 92 (74-105) mg/dL Calcium 9.3 (8.4-10.2) mg/dl Total Bilirubin 0.9 (0.2-1.0) mg/dL AST 24 (10-42) IU/L ALT 16 (10-60) IU/L Alkaline Phosphatase 53 (42-121) IU/L Troponin I < 0.02 (0.00-0.02) ng/ml Total Protein 7.2 (6.7-8.2) g/dl Albumin 4.4 (3.2-5.5) g/dl Globulin 2.8 Albumin/Globulin Ratio 1.57 Lipase 32 (22-51) U/L 06/22/18 Range/Units 14:25 WBC (5.0-10.0) 10^3/uL RBC (4.2-5.4) 10^6/uL Hgb (12.0-16.0) g/dL Hct (37.0-47.0) % MCV (80-100) fL MCH (27.0-34.0) pg MCHC (33.0-35.0) g/dL Plt Count (150-450) 10^3/uL Neut % (Auto) (42.2-75.2) % Lymph % (Auto) (20.5-50.1) % [place] % (Auto) (2-8) % Eos % (Auto) (1.0-3.0) % Baso % (Auto) (0.0-1.0) % D-Dimer, Quantitative (0-400) ng/mL Sodium (135-145) mmol/L Potassium (3.6-5.0) mmol/L Chloride (101-111) mmol/L Carbon Dioxide (21.0-31.0) mmol/L Anion Gap BUN (7-18) mg/dL Creatinine (0.6-1.3) mg/dL Est Cr Clr Drug Dosing mL/min Estimated GFR (MDRD) BUN/Creatinine Ratio Glucose (74-105) mg/dL Calcium (8.4-10.2) mg/dl Total Bilirubin (0.2-1.0) mg/dL AST (10-42) IU/L ALT (10-60) IU/L Alkaline Phosphatase (42-121) IU/L Troponin I < 0.02 (0.00-0.02) ng/ml Total Protein (6.7-8.2) g/dl Albumin (3.2-5.5) g/dl Globulin Albumin/Globulin Ratio Lipase (22-51) U/L Meds: Medications Generic Name Dose Route Start Last Admin Trade Name Evelio PRN Reason Stop Dose Admin Nitroglycerin 0.4 mg 06/22/18 10:35 06/22/18 10:42 Nitrostat SL 0.4 mg Q5M PRN Administration Chest Pain Sodium Chloride 10 ml 06/22/18 10:09 06/22/18 12:37 Saline Flush FLUSH 10 ml ASDIRECTED PRN Administration Keep Vein Open Discontinued Medications Generic Name Dose Route Start Last Admin Trade Name Evelio PRN Reason Stop Dose Admin Aspirin 324 mg 06/22/18 10:13 06/22/18 10:26 Aspirin PO 06/22/18 10:14 324 mg ONETIME ONE Administration Famotidine 20 mg 06/22/18 11:45 06/22/18 12:40 Pepcid IVPUSH 06/22/18 11:46 20 mg ONETIME ONE Administration Ondansetron HCl 4 mg 06/22/18 10:35 06/22/18 10:40 Zofran IV 06/22/18 10:36 4 mg ONETIME ONE Administration Ondansetron HCl 4 mg 06/22/18 11:45 06/22/18 12:43 Zofran IV 06/22/18 11:46 4 mg ONETIME ONE Administration Departure - Departure Time of Disposition: 15:04 Disposition: Home, Self-Care 01 Condition: Good Clinical Impression: Atypical chest pain, Esophagitis Instructions: Nonspecific Chest Pain, Esophagitis Forms: ED Department Discharge Additional Instructions: Restart your Protonix as previously prescribed. Follow up in clinic next week for recheck and consideration of cardiac stress test. Return to ER if worse at any time. - My Orders Last 24 Hours: My Active Orders 06/22/18 10:09 EKG 12 Lead [EKG Documentation Completion] [RC] STAT Peripheral IV Care [RC] . DIRECTED Sodium Chloride 0.9% [Saline Flush] 10 ml FLUSH ASDIRECTED PRN Peripheral IV Insertion Adult [OM.PC] Stat 06/22/18 10:35 Nitroglycerin [Nitrostat] 0.4 mg SL Q5M PRN 06/22/18 14:30 EKG Documentation Completion [RC] ROUTINE 06/22/18 Lunch Regular Diet [DIET] - Assessment/Plan Last 24 Hours: My Active Orders 06/22/18 10:09 EKG 12 Lead [EKG Documentation Completion] [RC] STAT Peripheral IV Care [RC] . DIRECTED Sodium Chloride 0.9% [Saline Flush] 10 ml FLUSH ASDIRECTED PRN Peripheral IV Insertion Adult [OM.PC] Stat 06/22/18 10:35 Nitroglycerin [Nitrostat] 0.4 mg SL Q5M PRN 06/22/18 14:30 EKG Documentation Completion [RC] ROUTINE 06/22/18 Lunch Regular Diet [DIET]
[2018-06-22] MEDS ORDERED: Famotidine 20 MG/2 ML SDV IVPUSH ONE (11:45)
== END 2018-06-22 15:15 | disposition home or self-care (01) ==
LOC: DL.ED 10:15
DX: K20.9 Esophagitis, unspecified (principal); I10 Essential (primary) hypertension; Z88.5 Allergy status to narcotic agent; Z88.8 Allergy status to other drugs, medicaments and biological substances; Z79.899 Other long term (current) drug therapy
CPT/HCPCS: 36415; 71045; 80053; 83690; 84484; 85025; 85379; 93005; 96374; 96375; 96376; 99285; A9270; J2405; J3490

== ENCOUNTER 2020-02-25 07:47 | Day surgery (SDC) | payer BC ==
[2020-02-25] MEDS ORDERED: Midazolam 1 MG/ML 2 ML SDV IV ONE (07:48)
[2020-02-25] MEDS ORDERED: Butorphanol 2 MG/ML SDV IV ONE (07:48)
[2020-02-25] MEDS ORDERED: Glycopyrrolate 0.2 MG/ML 2 ML SDV IV ONE (07:48)
[2020-02-25] MEDS ORDERED: Lactated Ringers 1,000 ML IV ONE (07:48)
[2020-02-25] MEDS ORDERED: Dexamethasone 4 MG/ML SDV IV ONE (07:48)
[2020-02-25] MEDS ORDERED: Propofol 200 MG/20 ML SDV IV ONE (07:48)
[2020-02-25] MEDS ORDERED: Rocuronium 100 MG/10 ML MDV IV ONE (07:48)
[2020-02-25] MEDS ORDERED: fentaNYL 100 MCG/2 ML SDV IV ONE (07:48)
[2020-02-25] MEDS ORDERED: Ketorolac 30 MG/ML SDV IVPUSH ONE (07:48)
[2020-02-25] MEDS ORDERED: Lidocaine 2% 20 ML MDV ONE (07:48)
[2020-02-25] MEDS ORDERED: Ondansetron 4 MG/2 ML SDV IV ONE (07:48)
[2020-02-25] MEDS ORDERED: Neostigmine Methylsulfate 10 MG/10 ML MDV IV ONE (07:48)
[2020-02-25] MEDS ORDERED: Lactated Ringers 1,000 ML IV SCH (08:00)
[2020-02-25] MEDS ORDERED: ceFAZolin 2 GM in Premix Bag 1 BAG IV ONE (09:00)
[2020-02-25] MEDS ORDERED: Butorphanol 2 MG/ML SDV ONE (09:44)
[2020-02-25] MEDS ORDERED: Ondansetron 4 MG/2 ML SDV IVPUSH PRN (09:52)
[2020-02-25] MEDS ORDERED: Acetaminophen/oxyCODONE 325-5 MG Tab PO PRN (09:52)
[2020-02-25] MEDS ORDERED: Sodium Chloride 0.9% 10 ML Syringe FLUSH PRN (09:55)
[2020-02-25] MEDS: Morphine 2 MG/ML SYRINGE IVPUSH PRN ×2 (10:59→13:02)
--- NOTE | 2020-02-25 12:01 | OR ---
DATE: 02/25/2020 PREOPERATIVE DIAGNOSES: Chronic cholecystitis without stones, abnormal HIDA, ejection fraction. POSTOPERATIVE DIAGNOSES: Chronic cholecystitis without stones, abnormal HIDA, ejection fraction. PROCEDURE: Laparoscopic cholecystectomy. ANESTHESIA: General. ESTIMATED BLOOD LOSS: Minimum. SPECIMEN: None. INDICATION FOR PROCEDURE: This 64-year-old female has epigastric and right upper quadrant abdominal pain. Ultrasound shows a questionable small polyp on the gallbladder wall, and a HIDA scan was done, which showed a negative ejection fraction. DESCRIPTION OF PROCEDURE: After adequate preparation, an infraumbilical incision was made. A Veress needle placed intra-abdominally for insufflation. This was then exchanged for a 5 mm trocar. Three other trocars were placed under direct vision. Examination showed a markedly distended gallbladder with no omental adhesions around the gallbladder. These were taken down by blunt and sharp dissection. The gallbladder wall was not thickened. No other intra- abdominal abnormalities were noted. The cystic triangle structures were dissected free, and the artery was cauterized, and the duct was clipped and divided. The gallbladder was then taken off the liver bed using cautery dissection. There was no spillage of bile or stones. The gallbladder was taken out through the epigastric trocar site. The abdomen was desufflated and the skin closed with Vicryl. [facility] /[id number]
[2020-02-26 08:55] VITALS: BP 128/88; PULSE 90
--- NOTE | 2020-02-26 09:37 | PCM.SN.2 ---
- Free Text/Narrative Note: Stable POD #1. Minimal pain. PO tolerated well. Wounds clean and dry. Can discharge today. No restrictions on diet or activity. May RTW on 03-09-20. Percocet #10 given for pain. FU as needed.
== END 2020-02-26 10:30 | disposition home or self-care (01) ==
LOC: DL.SDS 07:47 → EDSTATUS 09:00 → DL.SDS 02-26 10:30
PROVIDERS: ATTEND Surgery
DX: K81.1 Chronic cholecystitis (principal); Z01.812 Encounter for preprocedural laboratory examination; Z20.828 Contact with and (suspected) exposure to other viral communicable diseases; R93.2 Abnormal findings on diagnostic imaging of liver and biliary tract; Z88.5 Allergy status to narcotic agent; E03.9 Hypothyroidism, unspecified; I10 Essential (primary) hypertension; Z91.041 Radiographic dye allergy status
CPT/HCPCS: 00790; 47562; 87635; 94010; J0595; J0690; J1100; J1885; J2001; J2250; J2270; J2405; J2704; J2710; J3010; J3490; J7120; U0002

== ENCOUNTER 2020-09-19 03:04 | Emergency (ER) | payer BC ==
[2020-09-19 03:16] VITALS: BP 144/95; PULSE 96
[2020-09-19] MEDS ORDERED: Ondansetron 4 MG/2 ML SDV IVPUSH ONE (03:28)
[2020-09-19] MEDS ORDERED: Sodium Chloride 0.9% 1,000 ML IV ONE (03:30)
--- NOTE | 2020-09-19 03:30 | EDM.PDOC ---
ED HPI GENERAL MEDICAL PROBLEM - General Chief Complaint: Gastrointestinal Problem Stated Complaint: VOMMITING Time Seen by Provider: 09/19/20 03:29 Source of Information: Reports: Patient, Family, RN, RN Notes Reviewed History Limitations: Reports: No Limitations - History of Present Illness INITIAL COMMENTS - FREE TEXT/NARRATIVE: Surekha is a 65 y/o female who presents to the ED via personal vehicle with for complaints of nausea, vomiting, abdominal pain, and diarrhea. The patient reports her symptoms began abruptly about three hours ago and have maintained since that time. She states she has experienced multiple bouts of emesis and diarrhea but became concerned when the pain to her RUQ radiated into her back. She does attest to a history of cholecystitis for which she underwent a lap- krunal in February 2020. She denies recent illness, fever, shaking chills, cough, sore throat, hematemesis, chest pain, palpitations, dysuria, hematuria, melena, or hematochezia. She does attest to weakness and lightheadedness since the symptoms started; she denies syncope. She has not taken any medications for these symptoms. Right Upper Abdominal Pain Score (Numeric/FACES): 7 - Related Data Allergies Allergy/AdvReac Type Severity Reaction Status Date / Time Iodinated Contrast Media Allergy Severe Shortness Verified 02/25/20 08:15 [Iodinated Contrast Media - of Breath Oral and] codeine AdvReac Nausea Verified 02/25/20 08:15 meperidine [From Demerol] AdvReac Nausea and Verified 02/25/20 08:15 Vomiting Home Meds: Home Meds Lisinopril 10 mg PO DAILY 07/13/16 [History] L.acidoph,Paracasei, B.lactis [Probiotic] 1 each PO DAILY PRN 07/16/16 [History] Amitriptyline [Elavil] 12.5 mg PO BEDTIME 04/25/17 [History] Fluticasone/Salmeterol [Advair Diskus 100-50] 1 puff INH BID PRN 04/25/17 [History] Levothyroxine Sodium [Synthroid] 37.5 mcg PO DAILY 05/25/17 [History] Past Medical History HEENT History: Reports: Impaired Vision, Other (See Below) Other HEENT History: left tmj Cardiovascular History: Reports: Hypertension Respiratory History: Reports: Asthma, Bronchitis, Recurrent, Other (See Below) Other Respiratory History: Reactive Airway Disease, treated fir bronchitis within last week Gastrointestinal History: Reports: Cholelithiasis, GERD Genitourinary History: Reports: Pyelonephritis LUNCHROOM MONITOR History: Reports: , Spontaneous Other LUNCHROOM MONITOR History: 1 nvd and 1 miscarriage Musculoskeletal History: Reports: Arthritis, Back Pain, Chronic, Fibromyalgia, Osteoarthritis Other Musculoskeletal History: back surgery x2, and ruptured achilles tendon. Neurological History: Reports: Migraines Psychiatric History: Reports: None Endocrine/Metabolic History: Reports: Hypothyroidism Hematologic History: Reports: None Immunologic History: Reports: None Oncologic (Cancer) History: Reports: None Dermatologic History: Reports: None - Infectious Disease History Infectious Disease History: Reports: Chicken Pox, Measles, Mumps, Shingles - Past Surgical History Head Surgeries/Procedures: Reports: None HEENT Surgical History: Reports: Other (See Below) Other HEENT Surgeries/Procedures: HX OF JAW SURGERY Cardiovascular Surgical History: Reports: None Respiratory Surgical History: Reports: None GI Surgical History: Reports: Cholecystectomy, EGD Female Surgical History: Reports: D&C Endocrine Surgical History: Reports: None Neurological Surgical History: Reports: C-Spine, Lumbar Spine Musculoskeletal Surgical History: Reports: Other (See Below) Other Musculoskeletal Surgeries/Procedures:: neck, back surgery. CHAVO'S TENDON SURGERY Oncologic Surgical History: Reports: None Dermatological Surgical History: Reports: None Social & Family History - Family History Family Medical History: No Pertinent Family History Cardiac: Reports: Hypertension, GA Other Cardiac Family History: father had GA in his 70s GI: Reports: Celiac Disease Neurological: Reports: Alzheimers Disease - Tobacco Use Tobacco Use Status *Q: Never Tobacco User Second Hand Smoke Exposure: No - Caffeine Use Caffeine Use: Reports: Coffee, Soda Other Caffeine Use: 2 times a week - Recreational Drug Use Recreational Drug Use: No - Living Situation & Occupation Occupation: Employed ED ROS GENERAL - Review of Systems Review Of Systems: Comprehensive ROS is negative, except as noted in HPI. ED EXAM, GI/ABD - Physical Exam Exam: See Below Exam Limited By: No Limitations General Appearance: Alert, No Apparent Distress, Anxious Eyes: Bilateral: Normal Appearance, EOMI Throat/Mouth: Normal Inspection, Normal Oropharynx, Normal Voice, No Airway Compromise Head: Atraumatic, Normocephalic Neck: Normal Inspection, Supple, Non-Tender, Full Range of Motion Respiratory/Chest: No Respiratory Distress, Lungs Clear, Normal Breath Sounds, No Accessory Muscle Use, Chest Non-Tender Cardiovascular: Normal Peripheral Pulses, Regular Rate, Rhythm, No Edema, No Gallop, No JVD, No Murmur, No Rub GI/Abdominal Exam: Soft, No Organomegaly, No Distention, No Abnormal Bruit, No Mass, Pelvis Stable, Guarding, Tender (To palpation of bilateral upper quadrants), Abnormal Bowel Sounds (Hyperactive bowel sounds). No: Rigid, Rebound, Hernia (Female) Exam: Deferred Rectal (Female) Exam: Deferred Back Exam: Normal Inspection, Full Range of Motion. No: CVA Tenderness (L), CVA Tenderness (R) Extremities: Normal Inspection, Normal Range of Motion, Non-Tender, No Pedal Edema, Normal Capillary Refill Neurological: Alert, Oriented, CN II-XII Intact, Normal Cognition, Normal Gait, No Motor/Sensory Deficits Psychiatric: Anxious Skin Exam: Warm, Dry, Intact, No Rash, Pallor (Noted when patient sat up for examination). No: Diaphoretic, Ecchymosis, Erythema, Jaundice, Mottled, Petechiae Course - Vital Signs Last Recorded V/S: Last Vital Signs Temp 98.1 F 09/19/20 03:09 Pulse 96 09/19/20 03:09 Resp 18 09/19/20 03:09 BP 144/95 H 09/19/20 03:09 Pulse Ox 100 09/19/20 03:09 - Orders/Labs/Meds Labs: Laboratory Tests 09/19/20 09/19/20 Range/Units 03:27 03:27 WBC 15.4 H (5.0-10.0) 10^3/uL RBC 5.14 (4.2-5.4) 10^6/uL Hgb 15.1 D (12.0-16.0) g/dL Hct 45.6 (37.0-47.0) % MCV 88.7 (80-100) fL MCH 29.4 (27.0-34.0) pg MCHC 33.1 (33.0-35.0) g/dL Plt Count 264 (150-450) 10^3/uL Neut % (Auto) 88.6 H (42.2-75.2) % Lymph % (Auto) 3.3 L (20.5-50.1) % [place] % (Auto) 6.9 (2-8) % Eos % (Auto) 1.0 (1.0-3.0) % Baso % (Auto) 0.2 (0.0-1.0) % Sodium 142 (136-145) mmol/L Potassium 4.1 (3.5-5.1) mmol/L Chloride 103 (98-107) mmol/L Carbon Dioxide 29 (21-32) mmol/L Anion Gap 14.1 H (7-13) mEq/L BUN 19 H (7-18) mg/dL Creatinine 1.19 H (0.55-1.02) mg/dL Est Cr Clr Drug Dosing 41.62 mL/min Estimated GFR (MDRD) 45 BUN/Creatinine Ratio 16.0 (No establ ref range) Glucose 128 H (70-99) mg/dL Calcium 9.5 (8.5-10.1) mg/dL Magnesium 2.1 (1.8-2.4) mg/dL Total Bilirubin 0.7 (0.2-1.0) mg/dL AST 30 (15-37) U/L ALT 33 (14-59) U/L Alkaline Phosphatase 64 (46-116) U/L C-Reactive Protein < 0.2 (0.0-0.9) mg/dL Total Protein 7.6 (6.4-8.2) g/dL Albumin 4.3 (3.4-5.0) g/dL Globulin 3.3 Albumin/Globulin Ratio 1.3 Amylase 98 (25-115) U/L Lipase 116 (73-393) U/L Meds: Medications Discontinued Medications Generic Name Dose Route Start Last Admin Trade Name Freq PRN Reason Stop Dose Admin Al Hydroxide/Mg Hydroxide 30 ml 09/19/20 04:26 09/19/20 04:48 Gi Cocktail Oral Solution 30 Ml PO 09/19/20 04:27 30 ml ONETIME ONE Administration Sodium Chloride 1,000 mls @ 999 mls/hr 09/19/20 03:30 09/19/20 03:40 Normal Saline IV 09/19/20 04:30 999 mls/hr .BOLUS ONE Administration Ondansetron HCl 4 mg 09/19/20 03:28 05/08/21 03:40 Ondansetron 4 Mg/2 Ml Sdv IVPUSH 09/19/20 03:29 4 mg ONETIME ONE Administration - Re-Assessments/Exams Free Text/Narrative Re-Assessment/Exam: 09/19/20 Zofran 4mg IVP and NS 1L bolus initiated. Patient verbalized significant improvement in weakness and nausea following IVF and antiemetic. She continues to experience gastritis; will give GI cocktail while fluids are finishing. Patient verbalized improvement in upper abdominal pain following GI cocktail. Discussed supportive care for gastroenteritis, as well as red flag signs and symptoms which would warrant reevaluation. Patient and verbalized understanding and agreement with the plan of care. Departure - Departure Time of Disposition: 05:20 Disposition: Home, Self-Care 01 Condition: Good Clinical Impression: Gastroenteritis - Discharge Information Instructions: Viral Gastroenteritis, Adult, Yool-lb-Gybi Forms: ED Department Discharge Additional Instructions: Rx: Zofran 1.) Drink frequent, small sips of water to stay hydrated. 2.) You may eat a bland diet as you become hungry; bananas, crackers, applesauce, toast. Avoid spicy, greasy, high-fat foods. 3.) Follow up with primary care provider, or return to the emergency department, with any symptoms that persist past three days, fever, shaking chills, or worsening of symptoms despite medications. Sepsis Event Note (ED) - Evaluation Sepsis Screening Result: No Definite Risk - Focused Exam Vital Signs: Vital Signs Temp Pulse Resp BP Pulse Ox 09/19/20 03:09 98.1 F 96 18 144/95 H 100
[2020-09-19 04:17] LABS: ANION GAP 14.1 mEq/L (7-13); CHLORIDE,CL 103 mmol/L (98-107); SODIUM,NA 142 mmol/L (136-145)
[2020-09-19] MEDS ORDERED: GI Cocktail Oral Solution 30 ML PO ONE (04:26)
== END 2020-09-19 05:30 | disposition home or self-care (01) ==
LOC: DL.ED 03:04
DX: K52.9 Noninfective gastroenteritis and colitis, unspecified (principal); I10 Essential (primary) hypertension; J45.909 Unspecified asthma, uncomplicated; E03.9 Hypothyroidism, unspecified; Z91.041 Radiographic dye allergy status; Z88.5 Allergy status to narcotic agent; Z79.899 Other long term (current) drug therapy
CPT/HCPCS: 36415; 80053; 82150; 83690; 83735; 85025; 86140; 96374; 99283; 99284-25; A9270-GY; J2405; J7030

== ENCOUNTER 2022-03-12 21:38 | Emergency (ER) | payer BC ==
[2022-03-12] MEDS ORDERED: Sulfamethoxazole/Trimethoprim 800-160 MG Tab PO ONE (21:39)
[2022-03-12 21:48] VITALS: BP 172/88; PULSE 97
[2022-03-12] MEDS ORDERED: fentaNYL 100 MCG/2 ML SDV IVPUSH ONE (21:56)
[2022-03-12] MEDS ORDERED: Ondansetron 4 MG/2 ML SDV IVPUSH ONE (22:03)
[2022-03-12] MEDS ORDERED: cefTRIAXone 2 GM in Sodium Chloride 0.9% 100 ML IV ONE (22:28)
[2022-03-12 22:29] LABS: ANION GAP 11.3 mEq/L (7-13)
[2022-03-12] MEDS ORDERED: Phenazopyridine 95 MG Tab PO ONE (22:40)
[2022-03-12] MEDS ORDERED: Sulfamethoxazole/Trimethoprim 800-160 MG Tab ONE (22:54)
== END 2022-03-12 23:08 | disposition home or self-care (01) ==
LOC: DL.ED 21:38
DX: N39.0 Urinary tract infection, site not specified (principal); E03.9 Hypothyroidism, unspecified; I10 Essential (primary) hypertension; Z91.041 Radiographic dye allergy status; Z88.5 Allergy status to narcotic agent; Z88.8 Allergy status to other drugs, medicaments and biological substances; Z79.899 Other long term (current) drug therapy; Z90.49 Acquired absence of other specified parts of digestive tract
CPT/HCPCS: 36415; 80053; 81001; 85025; 87086; 87088; 87186; 96365; 96375; 99284; A9270; J0696; J2405; J3010

== ENCOUNTER 2024-10-14 06:26 | Emergency (ER) | payer BC, MEDICARE ==
[2024-10-14] MEDS ORDERED: Sodium Chloride 0.9% 10 ML Syringe FLUSH PRN (06:56)
[2024-10-14 07:03] LABS: BASOPHILS PERCENT AUTO 0.4 % (0.0-1.0); EOSINOPHILS PERCENT AUTO 5.4 % (1.0-3.0); HEMATOCRIT 41.1 % (37.0-47.0); HEMOGLOBIN 13.6 g/dL (12.0-16.0); MEAN CORPUSCULAR HEMOGLOBIN 29.6 pg (27.0-34.0); MEAN CORPUSCULAR HGB CONC 33.1 g/dL (33.0-35.0); MEAN CORPUSCULAR VOLUME 89.5 fL (80-100); MONOCYTES PERCENT AUTO 8.9 % (2-8); NEUTROPHILS PERCENT AUTO 45.3 % (42.2-75.2); PLATELET COUNT,PLT 252 10^3/uL (150-450); RED BLOOD CELL COUNT 4.59 10^6/uL (4.2-5.4); WHITE BLOOD CELL COUNT,WBC 8.4 10^3/uL (5.0-10.0)
[2024-10-14] MEDS: Aspirin 81 MG Tab.Chew ONE (07:08)
[2024-10-14 07:14] LABS: ALANINE AMINOTRANSFERASE,ALT 38 U/L (14-59); ALBUMIN 3.4 g/dL (3.4-5.0); ALKALINE PHOSPHATASE 81 U/L (46-116); ANION GAP 13.6 mEq/L (7-13); ASPARTATE AMNIOTRANSFERASE,AST 39 U/L (15-37); BILIRUBIN TOTAL 0.4 mg/dL (0.2-1.0); BLOOD UREA NITROGEN,BUN 15 mg/dL (7-18); BUN/CREATININE RATIO 14.3 (No establ ref range); CALCIUM 9.4 mg/dL (8.5-10.1); CARBON DIOXIDE,CO2 26 mmol/L (21-32); CHLORIDE,CL 105 mmol/L (98-107); CREATININE 1.05 mg/dL (0.55-1.02); GLUCOSE RANDOM 123 mg/dL (70-99); MAGNESIUM 2.1 mg/dL (1.8-2.4); POTASSIUM,K 3.6 mmol/L (3.5-5.1); PROTEIN TOTAL,TP 6.8 g/dL (6.4-8.2); SODIUM,NA 141 mmol/L (136-145)
[2024-10-14 07:15] LABS: ESTIMATED GFR 57 mL/min (>=60)
[2024-10-14] MEDS ORDERED: Aspirin 81 MG Tab.Chew PO ONE (07:21)
[2024-10-14 08:25] VITALS: BP 126/83; PULSE 84
== END 2024-10-14 10:15 | disposition home or self-care (01) ==
LOC: DL.ED 06:26
DX: R07.89 Other chest pain (principal); I10 Essential (primary) hypertension; J45.909 Unspecified asthma, uncomplicated; E03.9 Hypothyroidism, unspecified; Z90.49 Acquired absence of other specified parts of digestive tract; Z88.5 Allergy status to narcotic agent; Z88.8 Allergy status to other drugs, medicaments and biological substances; Z91.041 Radiographic dye allergy status; Z79.890 Hormone replacement therapy; Z79.899 Other long term (current) drug therapy
CPT/HCPCS: 36415; 71045; 80053; 83735; 83880; 84484; 85025; 85379; 93005; 99285; A9270

== ENCOUNTER 2025-03-20 06:57 | Day surgery (SDC) | payer MEDICARE, OTHER ==
[2025-03-20] MEDS ORDERED: Propofol 200 MG/20 ML SDV IV ONE (06:58)
[2025-03-20] MEDS ORDERED: Lactated Ringers 1,000 ML IV ONE (06:58)
[2025-03-20] MEDS: Lactated Ringers 1,000 ML IV SCH (07:29)
[2025-03-20 10:04] VITALS: BP 124/77; PULSE 79
[2025-03-20] MEDS ORDERED: Propofol 200 MG/20 ML SDV ONE (11:12)
== END 2025-03-20 10:20 | disposition home or self-care (01) ==
LOC: DL.ENDO 06:57
PROVIDERS: ATTEND Internal Medicine Gastroenterology
DX: K62.5 Hemorrhage of anus and rectum (principal); R19.7 Diarrhea, unspecified; I10 Essential (primary) hypertension; K21.9 Gastro-esophageal reflux disease without esophagitis; E03.9 Hypothyroidism, unspecified; J45.20 Mild intermittent asthma, uncomplicated; Z79.899 Other long term (current) drug therapy
CPT/HCPCS: 00811; 45380; 88305; J2704; J7120